=== PATIENT | male | born 1945 | race African-American/Black ===

== ENCOUNTER 2020-08-26 09:26 | Outpatient (REF) | payer MEDICARE, MEDICAID, SELFPAY ==
[2020-08-26 10:05] LABS: MANUAL DIFF FLAG NO
[2020-08-26 10:15] LABS: Basophils Absolute Auto 0.1 X10*3/uL (0.0-0.2); Eosinophils Absolute Auto 0.4 X10*3/uL (0.0-0.4); Eosinophils Percent Auto 6.1 % (0-4); Hematocrit 40.6 % (42-52); Hemoglobin 12.8 g/dl (14.0-18.0); Imm Gran Abs Auto 0.02 X10*3/uL (0.00-0.03); Imm Gran Pct Auto 0.3 % (0.0-0.4); Lymphocytes Absolute Auto 1.2 X10*3/uL (1.2-4.9); Lymphocytes Percent Auto 19.1 % (20-40); Mean Corpuscular HGB Conc 31.5 g/dl (31.0-36.0); Mean Corpuscular Hemoglobin 26.6 pg (27.0-33.0); Mean Corpuscular Volume 84.4 fL (80-98); Mean Platelet Volume 10.8 fL (9.4-12.4); Monocytes Absolute Auto 0.5 X10*3/uL (0.1-1.2); Monocytes Percent Auto 8.3 % (2-11); Neutrophils Absolute Auto 4.1 X10*3/uL (2.0-8.3); Neutrophils Percent Auto 65.2 % (45-73); Platelet Count 183 X10*3/uL (160-400); Red Blood Count 4.81 X10*6/uL (4.60-5.80); Red Cell Distribution Width 13.5 % (11.0-16.0); White Blood Count 6.3 X10*3/uL (4.8-10.8)
[2020-08-26 10:54] LABS: Alanine Aminotransferase 19 U/L (0-40); Albumin Level 4.5 g/dL (3.5-5.0); Alkaline Phosphatase 75 U/L (39-117); Anion Gap 10 (12-20); Aspartate Amino Transferase 19 U/L (5-37); Bilirubin Total 0.9 mg/dL (0.0-1.0); Carbon Dioxide 29 mmol/L (22-29); Chloride 109 mmol/L (96-108); Estimated Glomerular Filt Rate 44; Glucose Fasting 87 mg/dL (60-99); Potassium 4.3 mmol/L (3.3-5.1); Sodium 144 mmol/L (135-145); Total Protein 7.3 g/dL (6.5-8.0)
[2020-08-26 11:01] LABS: Blood Urea Nitrogen 24 mg/dL (9-16); Calcium 9.8 mg/dL (8.4-10.2); Prostate Specific Antigen Scr 1.37 ng/mL (<0.05-4.0)
== END 2020-08-26 09:27 | disposition home or self-care (01) ==
LOC: HO.10HDL 09:26
PROVIDERS: Visit Provider Internal Medicine
DX: I12.9 Hypertensive chronic kidney disease with stage 1 through stage 4 chronic kidney disease, or unspecified chronic kidney disease (principal); N18.9 Chronic kidney disease, unspecified; Z86.73 Personal history of transient ischemic attack (TIA), and cerebral infarction without residual deficits
CPT/HCPCS: 36415; 80053; 84153; 85025

== ENCOUNTER → 2020-12-24 14:36 | Outpatient (BNVA) | payer MEDICARE, MEDICAID, SELFPAY | PROVIDERS: PCP Internal Medicine; Visit Provider Urology | DX: R35.1 Nocturia (principal); N40.1 Benign prostatic hyperplasia with lower urinary tract symptoms; N13.8 Other obstructive and reflux uropathy; N52.9 Male erectile dysfunction, unspecified | CPT/HCPCS: 99202 ==

== ENCOUNTER → 2021-03-25 11:19 | Outpatient (BNVA) | payer MEDICARE, MEDICAID, SELFPAY | PROVIDERS: PCP Internal Medicine; Visit Provider Urology | DX: N40.1 Benign prostatic hyperplasia with lower urinary tract symptoms (principal); N13.8 Other obstructive and reflux uropathy; N52.9 Male erectile dysfunction, unspecified; R35.1 Nocturia | CPT/HCPCS: 51798; 99212 ==

== ENCOUNTER 2021-09-28 14:32 | Outpatient (REF) | payer MEDICARE, MEDICAID, SELFPAY ==
[2021-09-28 15:20] LABS: Influenza A PCR POSITIVE (Negative); Influenza B PCR NEGATIVE (Negative); Resp Syncy Virus RNA Qual PCR NEGATIVE (Negative); SARS COV2 PCR INHOUSE NEGATIVE (Negative)
== END 2021-09-28 14:33 | disposition home or self-care (01) ==
LOC: HO.LNP 14:32
PROVIDERS: Visit Provider Internal Medicine
DX: Z20.822 Contact with and (suspected) exposure to COVID-19 (principal); R05.9 Cough, unspecified
CPT/HCPCS: 0241U

== ENCOUNTER 2022-02-13 08:59 | Emergency (ER) | payer MEDICARE, MEDICAID, SELFPAY | END 2022-02-13 10:12 | disposition left against medical advice (07) | PROVIDERS: Emergency Provider Emergency Medicine; PCP Internal Medicine | DX: R60.0 Localized edema (principal) ==

== ENCOUNTER 2022-02-17 12:12 | Outpatient (REF) | payer MEDICARE, MEDICAID, SELFPAY ==
[2022-02-17 14:11] LABS: Alanine Aminotransferase 20 U/L (0-40); Albumin Level 4.4 g/dL (3.5-5.0); Alkaline Phosphatase 67 U/L (39-117); Anion Gap 18 (12-20); Aspartate Amino Transferase 19 U/L (5-37); Bilirubin Total 0.6 mg/dL (0.0-1.0); Blood Urea Nitrogen 31 mg/dL (9-16); Calcium 9.8 mg/dL (8.4-10.2); Carbon Dioxide 21 mmol/L (22-29); Chloride 108 mmol/L (96-108); Estimated Glomerular Filt Rate 40; Glucose Fasting 78 mg/dL (60-99); Potassium 3.9 mmol/L (3.3-5.1); Sodium 143 mmol/L (135-145); Total Protein 7.4 g/dL (6.5-8.0); Uric Acid 9.4 mg/dL (3.4-7.0)
== END 2022-02-17 12:13 | disposition home or self-care (01) ==
LOC: HO.10HDL 12:12
PROVIDERS: Visit Provider Internal Medicine
DX: I10 Essential (primary) hypertension (principal); M10.9 Gout, unspecified; D64.9 Anemia, unspecified
CPT/HCPCS: 36415; 80053; 84550

== ENCOUNTER 2022-07-15 15:19 | Inpatient (IN) | payer OTHER, MEDICARE, MEDICAID, SELFPAY ==
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
--- NOTE | ~2022-07-15 | FL_ITS ---
EXAMINATION: XR FLUOROSCOPY WITH IMAGES CLINICAL INFORMATION: Fluoroscopy guidance in the OR, 4 surgical hardware placement. COMPARISON: Left wrist radiograph 07/15/2022 TECHNIQUE: Fluoroscopy is provided for the orthopedic surgeon. Accumulative dose 0.538 mGy. 2 images obtained. FINDINGS: A metallic sideplate with threaded screws secures the distal radius. Fracture components are in anatomic alignment. The previously noted fractures to the scaphoid and ulnar are observed and are also in anatomic alignment. FL/FL guidance in OR IMPRESSION: Fluoroscopy provided as described.
--- NOTE | ~2022-07-15 | CT_ITS ---
EXAMINATION: CT lower leg RT wo IV con CLINICAL INFORMATION: Reason for Exam Tibial plateau fracture, CT to determine COMPARISON: Right knee radiographs performed earlier the same date TECHNIQUE: Axial images were obtained through the right lower leg without the administration of intravenous contrast. Coronal and sagittal reconstructed images generated. Intravenous Contrast: None This CT examination was performed using dose optimization techniques as appropriate, variously including the following: *Automated exposure control *Adjustment of mA and/or kV according to patient size (this includes techniques or standardized protocols for targeted exams where dose is matched to indication/reason for exam; i.e. extremities or head) *Use of iterative reconstruction technique DLP: 363.97 mGy-cm mGy-cm FINDINGS: There is a comminuted fracture of the lateral tibial plateau. Relatively large lateral tibial plateau articular surface fragment measuring approximately 2 x 2.3 cm in area is impacted up to 4 mm, series 7 image 51. Nondisplaced fracture line extends through the lateral margin of the lateral tibial spine. No involvement of the medial tibial plateau. Vertical fracture extends through the proximal medial tibial metaphysis. No transverse subcondylar component. Distal femur, patella and fibular intact. The more distal tibia is intact. Large lipohemarthrosis at the knee. No popliteal cyst. No ankle joint effusion. Mild to moderate vascular calcifications. Extensor mechanism appears to be intact. CT/CT lower leg RT wo IV con IMPRESSION: 1. Comminuted intra-articular fracture of the lateral tibial plateau with approximately 4 mm of depression of a large lateral tibial plateau articular surface fragment. 2. Large lipohemarthrosis. 3. No additional fracture or dislocation.
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
[2022-07-15 15:28] VITALS: BP 178/96; PULSE 80; O2SAT 95
[2022-07-15 15:48] VITALS: BP 168/106; PULSE 72; RESP 18; TEMP 36.7; O2SAT 97; BMI 25.7
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
[2022-07-15] MEDS: Acetaminophen 325 MG TABLET 975 MG PO (18:06)
[2022-07-15] MEDS: Morphine Sulfate Immed Release 15 MG TABLET PO (22:43)
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
[2022-07-16] VITALS (12 sets, daily range): BP systolic 122–169; BP diastolic 77–105; PULSE 77–106; RESP 14–18; TEMP 36.4–37.1; O2SAT 9–99
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
[2022-07-16 00:32] LABS: MANUAL DIFF FLAG NO
[2022-07-16 00:33] LABS: Basophils Percent Auto 0.3 % (0-2); Eosinophils Absolute Auto 0.2 X10*3/uL (0.0-0.4); Eosinophils Percent Auto 1.4 % (0-4); Hematocrit 39.6 % (42.0-52.0); Hemoglobin 12.6 g/dl (14.0-18.0); Imm Gran Abs Auto 0.05 X10*3/uL (0.00-0.03); Imm Gran Pct Auto 0.4 % (0.0-0.4); Lymphocytes Absolute Auto 1.2 X10*3/uL (1.2-4.9); Lymphocytes Percent Auto 9.7 % (20-40); Mean Corpuscular HGB Conc 31.8 g/dl (31.0-36.0); Mean Corpuscular Hemoglobin 26.4 pg (27.0-33.0); Monocytes Absolute Auto 0.9 X10*3/uL (0.1-1.2); Monocytes Percent Auto 7.3 % (2-11); Neutrophils Absolute Auto 9.8 x10*3/uL (2.0-8.3); Neutrophils Percent Auto 80.9 % (45-73); Platelet Count 168 X10*3/uL (160-400); Red Blood Count 4.77 X10*6/uL (4.60-5.80); Red Cell Distribution Width 13.7 % (11.0-16.0); White Blood Count 12.1 X10*3/uL (4.8-10.8)
[2022-07-16 00:39] LABS: Prothrombin Time 11.9 SEC (10.0-13.1)
[2022-07-16 00:42] LABS: Partial Thromboplastin Time 30.2 SEC (26.0-36.4)
[2022-07-16 00:49] LABS: COVID-19 Test Negative (Negative); IDNOW Serial# 16C4AD1C; IDNOW Serial# BCCEAD1C; Influenza A Negative (Negative); Influenza B2 Negative (Negative)
[2022-07-16 00:56] LABS: Alanine Aminotransferase 25 U/L (0-40); Alkaline Phosphatase 68 U/L (39-117); Anion Gap 12 (12-20); Aspartate Amino Transferase 23 U/L (5-37); Bilirubin Total 0.7 mg/dL (0.0-1.0); Blood Urea Nitrogen 21 mg/dL (9-16); Calcium 9.3 mg/dL (8.4-10.2); Carbon Dioxide 23 mmol/L (22-29); Chloride 113 mmol/L (96-108); Creatinine Clr Calc Pharmacy 52.4; Estimated Glomerular Filt Rate 46; Glucose Random 110 mg/dL (60-115); Sodium 144 mmol/L (135-145); Total Protein 6.6 g/dL (6.5-8.0)
[2022-07-16] MEDS: oxyCODONE HCl Immed Release 5 MG TABLET PO (03:08)
--- NOTE | 2022-07-16 07:17 | PC.NURSE ---
Addendum entered by Filipe Donovan RN 07/16/22 07:17: addendum: awaiting PT/CM not inpt bed Original Note: assumed care of patient, pt aox3, calm and cooperative, VSS, awaiting inpatient bed
--- NOTE | 2022-07-16 07:39 | PC.NURSE ---
pt cleaned, repositioned, set up with breakfast tray
[2022-07-16 08:30] LABS: Appearance Urine Clear; Color Urine Yellow; Glucose Urine UA Negative (Negative); Leukocyte Esterase Urine Negative (Negative); Nitrite Urine Negative (Negative); Specific Gravity - Urine 1.015 (1.005-1.025); UMIC TRIGGER UACC YES; Urine Blood Small (1+) (Negative); Urine Ketones Negative (Negative); Urine Protein 100 (2+) mg/dL (Neg-Trace)
[2022-07-16 08:37] LABS: Bacteria Urine None Seen (None Seen); Hyaline Casts Urine 0-2 /LPF (0-2); RBC Urine 0-2 /HPF (0-2); Squamous Epithelial Cell Urine 0-2 /HPF (0-2); WBC Urine 0-5 /HPF (0-5)
--- NOTE | 2022-07-16 09:08 | PC.NURSE ---
physical therapy at bedside
--- NOTE | 2022-07-16 09:35 | PHA.MEDREC ---
Pharmacy Consult ? Medication Reconciliation Pharmacy has completed the medication reconciliation. Patient did not know their medications. Encouraged this tax intern to call pharmacy to confirm meds. Called pharmacy and confirmed meds based off fill history/claim history.
[2022-07-16] MEDS: Acetaminophen 325 MG TABLET 975 MG PO (10:31)
[2022-07-16] MEDS: Metoprolol Succinate ER 100 MG TAB.ER.24H 200 MG PO (10:32)
[2022-07-16] MEDS: Atorvastatin Calcium 10 MG TABLET PO (10:32)
[2022-07-16] MEDS: lisinopriL 20 MG TABLET PO (10:32)
[2022-07-16] MEDS: Cholecalciferol (Vitamin D3) 25 MCG TABLET PO (10:32)
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
[2022-07-16 13:22] LABS: Glucose, Whole Blood 126 mg/dL (60-115)
--- NOTE | 2022-07-16 16:00 | MHC.EDTECH ---
this pct assumed care of patient at 1500 ,rounding done ,pt refused vitals sign ,rn elaxis aware .
--- NOTE | 2022-07-16 18:13 | MHC.EDTECH ---
pt refused dinner ,rn aware .
[2022-07-16] MEDS: OLANZapine 10 MG VIAL IM (18:53)
[2022-07-16] MEDS: HaloperidoL 5 MG TABLET PO (18:53)
[2022-07-16] MEDS: LORazepam 1 MG TABLET 2 MG PO (18:53)
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
--- NOTE | 2022-07-17 00:23 | PC.NURSE ---
pt sleeping, respirations even and unlabored, no apparent distress at this time
--- NOTE | 2022-07-17 01:06 | PC.NURSE ---
pt incontinent of urine, this RN and SUSHMA Angeles cleaned pt, changed gown and placed [place] condom cath on pt. Pt verbalizes no pain at this time and fell back asleep. Camera sitter in place at this time
--- NOTE | 2022-07-17 02:58 | PC.NURSE ---
Pt awoke for a few minutes asking for breakfast. pt was informed by this RN that it is too early for breakfast but he will be woken up when it is time for breakfast. Pt fell back asleep right after
[2022-07-17] MEDS: oxyCODONE HCl Immed Release 5 MG TABLET PO ×2 (07:32→21:48)
[2022-07-17] MEDS: OLANZapine ODT 10 MG TAB.RAPDIS TRANSLINGU (07:33)
[2022-07-17] MEDS: Acetaminophen 325 MG TABLET 975 MG PO (07:33)
[2022-07-17] MEDS: Metoprolol Succinate ER 100 MG TAB.ER.24H 200 MG PO (07:36)
[2022-07-17] MEDS: Atorvastatin Calcium 10 MG TABLET PO (07:37)
[2022-07-17] MEDS: lisinopriL 20 MG TABLET PO (07:37)
[2022-07-17] MEDS: Cholecalciferol (Vitamin D3) 25 MCG TABLET PO (07:38)
--- NOTE | 2022-07-17 08:18 | MHC.CM.ED ---
Received message from [facility]: [facility] will only accept if it is 100% certain that pt does NOT need surgery OR that surgery can be arranged for day 14 following acute rehab stay. Pt is to have an ortho consult this week (no appt as of this note) for determination on surgical needs per sander Celestin. Pt remains boarding in ED as PT consult determined STR/acute placement. Will continue to refer to SNF level facilities. Pt and ICU care team updated on above.
--- NOTE | 2022-07-17 12:00 | PC.NURSE ---
ASSUMED CARE OF THIS PT AT 0700. PT SLEEPING. MORNING MEDS GIVEN BY PREVIOUS RN. DONEPEZIL NOT AVAILABLE IN ED [facility]. PHARMACY WAS NOTIFIED AND WILL BRING TO THE UNIT.
--- NOTE | 2022-07-17 14:00 | PC.NURSE ---
PT BOOSTED UP IN BED AND GIVEN LUNCH. HE REFUSED VS TO BE DONE BY TECH. PLEASANTLY CONFUSED. NO AGGRESSIVE BEHAVIOR NOTED/REPORTED.
[2022-07-17] MEDS: minoxidiL 2.5 MG TABLET 5 MG PO ×2 (14:25→14:26)
[2022-07-17 14:38] VITALS: RESP 16
--- NOTE | 2022-07-17 14:38 | MHC.EDTECH ---
pt refused vitals at this time. RN aware
--- NOTE | 2022-07-17 15:59 | PC.NURSE ---
PT ASSISTED TO COMMODE, SMALL BM. INCONTINENT CARE AND BED CHANGE DONE. PT RESTING QUIETLY IN BED.
[2022-07-17 21:24] VITALS: BP 144/82; PULSE 99; RESP 16; O2SAT 95
[2022-07-17] MEDS: Melatonin 3 MG TABLET 6 MG PO (21:49)
--- NOTE | 2022-07-17 21:50 | PC.NURSE ---
This nurse resume care at 19:00: Pt reports pain, and unable to sleep. This nurse medicated pt following MAR. Pt has a pitch of water at bedside and a camera for safety concerns. Pt V/ S are stable, pt is a/o x4. will continue to monitor.
--- NOTE | 2022-07-18 05:35 | PC.NURSE ---
Pt's V/S are table, this nurse has given report to overflow nurse.
[2022-07-18 06:00] VITALS: BP 151/85; PULSE 79; RESP 20; TEMP 36.7; O2SAT 96
[2022-07-18] MEDS: Metoprolol Succinate ER 100 MG TAB.ER.24H 200 MG PO (08:29)
[2022-07-18] MEDS: Cholecalciferol (Vitamin D3) 25 MCG TABLET PO (08:29)
[2022-07-18] MEDS: Atorvastatin Calcium 10 MG TABLET PO (08:29)
[2022-07-18] MEDS: lisinopriL 20 MG TABLET PO (08:29)
--- NOTE | 2022-07-18 08:34 | PC.NURSE ---
Minoxidil requested from pharmacy. New socks and ice pack given to pt. Medicated to JUL.
--- NOTE | 2022-07-18 09:09 | MHC.CM.ED ---
Addendum entered by Helen Mcclelland 07/18/22 10:32: Received notification from Ammy OSBORNE that patient will be admitted. Original Note: Patient remains in ER overflow. Clinical updates sent to all facilties still following patient: [facility], [place], [facility], [facility], [facility], [facility], [facility] and [facility]. Continue to monitor for d/c needs.
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
--- NOTE | 2022-07-18 10:31 | PC.NURSE ---
Order for IV antibiotic with direction to be given in quoc-operative setting prior to surgery. Will hold at this time although order time states to give now.
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
[2022-07-18] MEDS: Lactated Ringers 1,000 ML 100 ML IVCONT (13:30)
[2022-07-18 13:42] VITALS: RESP 20
[2022-07-18] MEDS: HYDROmorphone HCl 0.5 MG/0.5 ML SYRINGE IVPUSH ×2 (13:42→20:48)
[2022-07-18 14:52] VITALS: BP 132/74; PULSE 97; RESP 17; TEMP 36.9; O2SAT 94
[2022-07-18 16:09] VITALS: BP 139/85; PULSE 92; RESP 18; TEMP 36.8; O2SAT 95
[2022-07-18 19:49] VITALS: BP 131/77; PULSE 88; RESP 18; TEMP 37.1; O2SAT 97
[2022-07-18 20:00] VITALS: RESP 20
[2022-07-18] MEDS: oxyCODONE HCl ER 10 MG TAB.ER.12H PO (20:48)
[2022-07-18] MEDS: Docusate Sodium 100 MG CAPSULE PO (20:48)
[2022-07-18] MEDS: Celecoxib 200 MG CAPSULE PO (20:48)
[2022-07-19] MEDS: Lactated Ringers 1,000 ML 100 ML IVCONT ×3 (00:31→23:03)
[2022-07-19 04:00] VITALS: BP 156/66; PULSE 89; RESP 18; TEMP 36.1; O2SAT 96
[2022-07-19 06:21] LABS: MANUAL DIFF FLAG NO
[2022-07-19 06:26] LABS: Basophils Percent Auto 0.4 % (0-2); Eosinophils Absolute Auto 0.4 X10*3/uL (0.0-0.4); Eosinophils Percent Auto 4.4 % (0-4); Hematocrit 31.4 % (42.0-52.0); Hemoglobin 9.9 g/dl (14.0-18.0); Imm Gran Abs Auto 0.03 X10*3/uL (0.00-0.03); Imm Gran Pct Auto 0.4 % (0.0-0.4); Lymphocytes Percent Auto 12.2 % (20-40); Mean Corpuscular HGB Conc 31.5 g/dl (31.0-36.0); Mean Corpuscular Hemoglobin 26.1 pg (27.0-33.0); Mean Corpuscular Volume 82.8 fL (80.0-98.0); Mean Platelet Volume 9.8 fL (9.4-12.4); Monocytes Absolute Auto 0.7 X10*3/uL (0.1-1.2); Neutrophils Absolute Auto 5.9 x10*3/uL (2.0-8.3); Neutrophils Percent Auto 73.6 % (45-73); Platelet Count 124 X10*3/uL (160-400); Red Blood Count 3.79 X10*6/uL (4.60-5.80); Red Cell Distribution Width 13.5 % (11.0-16.0)
[2022-07-19 06:42] LABS: Anion Gap 14 (12-20); Blood Urea Nitrogen 25 mg/dL (9-16); Calcium 8.8 mg/dL (8.4-10.2); Carbon Dioxide 22 mmol/L (22-29); Chloride 108 mmol/L (96-108); Creatinine Clr Calc Pharmacy 64.8; Estimated Glomerular Filt Rate 59; Glucose Fasting 97 mg/dL (60-99); Sodium 140 mmol/L (135-145)
[2022-07-19 07:53] VITALS: BP 148/98; PULSE 84; RESP 18; TEMP 36.3; O2SAT 97
[2022-07-19] MEDS: Cholecalciferol (Vitamin D3) 25 MCG TABLET PO (08:13)
[2022-07-19] MEDS: Docusate Sodium 100 MG CAPSULE PO ×2 (08:13→21:34)
[2022-07-19] MEDS: Metoprolol Succinate ER 100 MG TAB.ER.24H 200 MG PO (08:13)
[2022-07-19] MEDS: oxyCODONE HCl ER 10 MG TAB.ER.12H PO ×2 (08:13→21:34)
[2022-07-19] MEDS: Celecoxib 200 MG CAPSULE PO ×2 (08:13→21:34)
[2022-07-19] MEDS: Atorvastatin Calcium 10 MG TABLET PO (08:14)
[2022-07-19] MEDS: lisinopriL 20 MG TABLET PO (08:14)
[2022-07-19] MEDS: minoxidiL 2.5 MG TABLET 5 MG PO (08:14)
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
[2022-07-19] MEDS: oxyCODONE HCl Immed Release 5 MG TABLET PO (12:46)
[2022-07-19] MEDS: Acetaminophen 325 MG TABLET 975 MG PO ×2 (12:46→21:38)
[2022-07-19 15:37] VITALS: BP 128/81; PULSE 91; RESP 18; TEMP 36.2; O2SAT 94
[2022-07-19 19:35] VITALS: BP 143/96; PULSE 86; RESP 18; TEMP 36.2; O2SAT 97
[2022-07-20] VITALS (20 sets, daily range): BP systolic 138–230; BP diastolic 23–148; PULSE 69–100; RESP 8–20; TEMP 36.2–37.3; O2SAT 91–97
--- NOTE | 2022-07-20 03:36 | PC.NURSE ---
pt removed soft cast from L wrist and refusing to put it back on, stating that he doesn't need it.
[2022-07-20 06:23] LABS: MANUAL DIFF FLAG NO
[2022-07-20 06:30] LABS: Basophils Percent Auto 0.4 % (0-2); Eosinophils Absolute Auto 0.5 X10*3/uL (0.0-0.4); Hematocrit 34.1 % (42.0-52.0); Hemoglobin 11.1 g/dl (14.0-18.0); Imm Gran Abs Auto 0.03 X10*3/uL (0.00-0.03); Imm Gran Pct Auto 0.4 % (0.0-0.4); Lymphocytes Absolute Auto 1.1 X10*3/uL (1.2-4.9); Lymphocytes Percent Auto 14.9 % (20-40); Mean Corpuscular HGB Conc 32.6 g/dl (31.0-36.0); Mean Corpuscular Hemoglobin 26.6 pg (27.0-33.0); Mean Corpuscular Volume 81.6 fL (80.0-98.0); Mean Platelet Volume 10.3 fL (9.4-12.4); Monocytes Absolute Auto 0.7 X10*3/uL (0.1-1.2); Monocytes Percent Auto 8.9 % (2-11); Neutrophils Absolute Auto 5.2 x10*3/uL (2.0-8.3); Neutrophils Percent Auto 69.4 % (45-73); Platelet Count 159 X10*3/uL (160-400); Red Blood Count 4.18 X10*6/uL (4.60-5.80); Red Cell Distribution Width 13.2 % (11.0-16.0); White Blood Count 7.5 X10*3/uL (4.8-10.8)
[2022-07-20 06:58] LABS: Anion Gap 13 (12-20); Blood Urea Nitrogen 28 mg/dL (9-16); Calcium 9.1 mg/dL (8.4-10.2); Carbon Dioxide 25 mmol/L (22-29); Chloride 108 mmol/L (96-108); Creatinine Clr Calc Pharmacy 56.5; Estimated Glomerular Filt Rate 50; Glucose Fasting 90 mg/dL (60-99); Sodium 142 mmol/L (135-145)
[2022-07-20] MEDS: Metoprolol Succinate ER 100 MG TAB.ER.24H 200 MG PO (07:55)
[2022-07-20] MEDS: lisinopriL 20 MG TABLET PO (07:55)
[2022-07-20] MEDS: oxyCODONE HCl ER 10 MG TAB.ER.12H PO ×2 (07:56→19:27)
[2022-07-20] MEDS: Celecoxib 200 MG CAPSULE PO ×2 (07:56→19:27)
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
--- NOTE | 2022-07-20 09:38 | PC.NURSE ---
Patient arrived to preop with brace on right leg, no brace present on left arm. Dr. Cardenas at bedside. Permission from Dr. Cardenas to remove leg brace to clip and shave. Leg brace removed, tolerated well.
[2022-07-20] MEDS: Lactated Ringers 1,000 ML 80 ML IVCONT (10:13)
--- NOTE | 2022-07-20 10:15 | PC.NURSE ---
Dr. Dobbs made aware of patients recent BUN and Creat. New order to open Lactated Ringers wide and bolus 200ml of liter. Okay to proceed with surgery.
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
--- NOTE | 2022-07-20 10:40 | PC.NURSE ---
Notified by Michelle Wallace that Stat Type and Screen can be obtained in PACU after surgery. Yadira DINKEY MECHANIC notified.
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
--- NOTE | 2022-07-20 13:32 | W.PM.OPN ---
Operative Note Operative Note Date of Service: 07/20/22 Narrative: Date of Service: 07/20/22 Pre-op diagnosis: left distal radius fracture RIght tibial plateau fracture Post-op diagnosis: same Procedure: ORIF right tibial plateau ORIF left distal radius Implants: [place] lateral tibial plateau locking plate with 5ml Hydroset Harish 10 holwe distal locking plate Surgeon: Liborio Cardenas MD Anesthesia: GETA, regional and local Was an Mass Communications Professor used for this Procedure?: Yes Mass Communications Professor: Michelle Wallace Estimated blood loss (mL): 50 Tourniquet time (min): 60 IV fluids (mL): 1,100 Pathology: none sent Condition: stable Disposition: PACU Procedure in detail: Patient was brought to the operating room and placed supine on the radiolucent table. The limb was prepped and draped in standard sterile fashion and a time out was called to identify proper site, proper procedure and IV antibiotics per weight were administered. I began by making a lateral incision from proximal to the lateral joint line down across Gerdy's tubercle extending anteriorly. The IT band was incised in line with the incision and the anterior portion reflected off Gerdy's. The capsule was incised along with the coronal ligaments perpedicular to the incision between the lateral meniscus and the tibial plateau. The meniscus was tagged and the joint was irrigated. There was a split depression of the lateral plateau. I extended my anterior tibial fasciotomy distal and reflected the Tib ant off the tibia. A small cortical window was made at the metadyaphyseal junction anterolaterally and a tamp was inserted and the lateral plateau was elevated. I used biplanar flouro and direct visualization to confirm articular reduction. Once satisfied I injected 5 ml of Hydroset into the defect via the cortical window. Once the Hydroset was dry I placed a small lateral tibial plateau plate. Biplanar Flouro was used to confirm placement and standard AO technique was used to place 4 proximal locking and 2 distal non locking screws. I was satisfied with the stability and additional screws were not necessary. The position of the plate and the fracture reduction were confirmed with biplanar fluoroscopy. Once satisfied with this I removed all non essential instrumentation and irrigated copiously. I repaired the lateral meniscus and capsule and closed the IT band with running Quill and closed the subQ with absorbable sutures and skin janine. THe lower leg fascia was not repaired. The tourniquet was let down and there was no brisk bleeding. Patient was then placed in sterile dressing and extubated. He was brought to the recovery room in stable condition. There were no known complications. I then turned my attention to the contralateral distal radius. The limb was prepped and draped in standard fashion and a time-out was called to identify proper site procedure proper surgeon. IV antibiotics per weight were administered. I began by exsanguinating the limb and insufflating the tourniquet to 250 mm Hg. I then made a standard incision over the FCR. FCR sheath was incised and the FCR was retracted ulnar. A marivel incision was made in the FPL sheath and this was opened up proximally and distally. The FPL was swept aside revealing the pronator quadratus which was periosteally elevated off the distal radius revealing a distal radius fracture. I used a [place] and right your to remove necrotic debris and reduced the fracture. Using biplanar fluoroscopy I was satisfied with the reduction . A 0.54 K-wire was placed through the radial styloid into the radial shaft to provisionally maintain the reduction. A Harish distal radius plate was selected and placed on the distal radius. Fluoroscopic images were taken to confirm appropriate alignment on the AP and lateral projection. Once I was satisfied with this the radial styloid screw and the distal row were placed using standard AO technique. I then filled the proximal row with locking screws again confirming fracture reduction and hardware position using biplanar fluoroscopy. Once this was done I placed 2 proximal nonlocking screws through the cortical shaft reducing the plate to the bone and reapproximating the anatomic tilt of the distal radius on the lateral projection. Again once I was satisfied with the position of the plate and the fracture alignment all instrumentation was removed. The DRUJ was assessed and found to be stable and a layered closure was performed with absorbable sub-Q suture, a running prolene and skin glue. Sterile dressings were applied. Patient was placed into a well-padded thumb spica splint. Patient was extubated brought to recovery room in stable condition there were no known complications.
[2022-07-20] MEDS: fentaNYL citrate/PF 100 MCG/2 ML VIAL 25 MCG IVPUSH (13:45)
[2022-07-20] MEDS: Labetalol HCL 100 MG/20 ML VIAL IVPUSH ×2 (13:55→15:40)
[2022-07-20] MEDS: hydrALAZINE HCl 20 MG/ML VIAL 10 MG IVPUSH (14:08)
[2022-07-20] MEDS: hydrALAZINE HCl 20 MG/ML VIAL 5 MG IVPUSH (14:30)
[2022-07-20] MEDS: 0.9 % Sodium Chloride Flush 3 ML SYRINGE IVFLUSH ×3 (16:40→19:30)
[2022-07-20] MEDS: ceFAZolin Sodium/Dextrose,Iso 2 GM/50 ML PIGGYBACK IV (16:40)
[2022-07-20] MEDS: Enoxaparin Sodium 40 MG/0.4 ML SYRINGE SUBCUT (16:41)
[2022-07-20] MEDS: Docusate Sodium 100 MG CAPSULE PO (19:27)
[2022-07-20] MEDS: oxyCODONE HCl Immed Release 5 MG TABLET PO (23:09)
[2022-07-20] MEDS: Melatonin 3 MG TABLET 6 MG PO (23:51)
[2022-07-21] VITALS (8 sets, daily range): BP systolic 131–180; BP diastolic 60–96; PULSE 80–108; RESP 18; TEMP 36.3–36.9; O2SAT 93–97
[2022-07-21] MEDS: HYDROmorphone HCl 0.5 MG/0.5 ML SYRINGE IVPUSH ×3 (00:18→17:53)
[2022-07-21 06:00] LABS: MANUAL DIFF FLAG NO
[2022-07-21 06:14] LABS: Basophils Percent Auto 0.2 % (0-2); Eosinophils Absolute Auto 0.1 X10*3/uL (0.0-0.4); Eosinophils Percent Auto 0.9 % (0-4); Hematocrit 34.3 % (42.0-52.0); Hemoglobin 11.1 g/dl (14.0-18.0); Imm Gran Abs Auto 0.03 X10*3/uL (0.00-0.03); Imm Gran Pct Auto 0.3 % (0.0-0.4); Lymphocytes Absolute Auto 0.9 X10*3/uL (1.2-4.9); Lymphocytes Percent Auto 7.7 % (20-40); Mean Corpuscular HGB Conc 32.4 g/dl (31.0-36.0); Mean Corpuscular Hemoglobin 26.5 pg (27.0-33.0); Mean Corpuscular Volume 81.9 fL (80.0-98.0); Mean Platelet Volume 10.3 fL (9.4-12.4); Monocytes Absolute Auto 1.1 X10*3/uL (0.1-1.2); Monocytes Percent Auto 9.8 % (2-11); Neutrophils Absolute Auto 8.9 x10*3/uL (2.0-8.3); Neutrophils Percent Auto 81.1 % (45-73); Platelet Count 185 X10*3/uL (160-400); Red Blood Count 4.19 X10*6/uL (4.60-5.80); Red Cell Distribution Width 13.4 % (11.0-16.0)
[2022-07-21 06:39] LABS: Blood Urea Nitrogen 26 mg/dL (9-16); Calcium 9.2 mg/dL (8.4-10.2); Creatinine Clr Calc Pharmacy 53.1; Estimated Glomerular Filt Rate 47; Glucose Fasting 103 mg/dL (60-99)
[2022-07-21 06:50] LABS: Anion Gap 16 (12-20); Carbon Dioxide 23 mmol/L (22-29); Chloride 107 mmol/L (96-108); Potassium 4.9 mmol/L (3.3-5.1); Sodium 141 mmol/L (135-145)
[2022-07-21] MEDS: Enoxaparin Sodium 40 MG/0.4 ML SYRINGE SUBCUT (08:20)
[2022-07-21] MEDS: oxyCODONE HCl ER 10 MG TAB.ER.12H PO ×2 (08:21→20:23)
[2022-07-21] MEDS: minoxidiL 2.5 MG TABLET 5 MG PO (08:21)
[2022-07-21] MEDS: Metoprolol Succinate ER 100 MG TAB.ER.24H 200 MG PO (08:21)
[2022-07-21] MEDS: Celecoxib 200 MG CAPSULE PO ×2 (08:21→20:23)
[2022-07-21] MEDS: Docusate Sodium 100 MG CAPSULE PO ×2 (08:22→20:23)
[2022-07-21] MEDS: lisinopriL 20 MG TABLET PO (08:22)
[2022-07-21] MEDS: Cholecalciferol (Vitamin D3) 25 MCG TABLET PO (08:22)
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
[2022-07-21] MEDS: 0.9 % Sodium Chloride Flush 3 ML SYRINGE IVFLUSH ×4 (11:54→16:59)
[2022-07-21] MEDS: Atorvastatin Calcium 10 MG TABLET PO (11:54)
--- NOTE | 2022-07-21 13:55 | HO.POSTANES ---
Post Anesthesia Evaluation Post Anesthesia Evaluation Vital Signs: Vital Signs Temp Pulse Resp BP Pulse Ox O2 Del Method 07/21/22 11:53 97.7 F 98 18 131/80 93 Room Air 07/21/22 11:56 93 Room Air 07/21/22 08:00 98.4 F 80 18 180/60 H 97 Room Air 07/21/22 03:45 97.8 F 82 18 157/92 H 95 Room Air Anesthesia: Nerve Block and General Mental Status: Awake Pain Control: Satisfactory Nausea/Vomiting: None Hydration: Adequate Anesthesia-Related Issues: No Anes. Related Issues
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
[2022-07-21] MEDS: oxyCODONE HCl Immed Release 5 MG TABLET PO (20:22)
[2022-07-21] MEDS: Acetaminophen 325 MG TABLET 650 MG PO (20:23)
[2022-07-21] MEDS: Melatonin 3 MG TABLET 6 MG PO (20:24)
[2022-07-22] VITALS (7 sets, daily range): BP systolic 110–162; BP diastolic 63–93; PULSE 84–100; RESP 15–18; TEMP 36.6–36.8; O2SAT 94–97
[2022-07-22] MEDS: 0.9 % Sodium Chloride Flush 3 ML SYRINGE IVFLUSH ×4 (00:11→06:37)
[2022-07-22] MEDS: oxyCODONE HCl Immed Release 5 MG TABLET PO ×3 (03:13→06:36)
[2022-07-22 06:30] LABS: MANUAL DIFF FLAG NO
[2022-07-22] MEDS: Enoxaparin Sodium 40 MG/0.4 ML SYRINGE SUBCUT (06:33)
[2022-07-22] MEDS: Acetaminophen 325 MG TABLET 650 MG PO (06:34)
[2022-07-22] MEDS: Metoprolol Succinate ER 100 MG TAB.ER.24H 200 MG PO (06:34)
[2022-07-22] MEDS: Celecoxib 200 MG CAPSULE PO (06:35)
[2022-07-22] MEDS: oxyCODONE HCl ER 10 MG TAB.ER.12H PO (06:35)
[2022-07-22 06:36] LABS: Basophils Percent Auto 0.3 % (0-2); Eosinophils Absolute Auto 0.2 X10*3/uL (0.0-0.4); Eosinophils Percent Auto 1.3 % (0-4); Hematocrit 33.1 % (42.0-52.0); Hemoglobin 10.8 g/dl (14.0-18.0); Imm Gran Abs Auto 0.05 X10*3/uL (0.00-0.03); Imm Gran Pct Auto 0.4 % (0.0-0.4); Mean Corpuscular HGB Conc 32.6 g/dl (31.0-36.0); Mean Corpuscular Hemoglobin 26.2 pg (27.0-33.0); Mean Corpuscular Volume 80.1 fL (80.0-98.0); Mean Platelet Volume 10.2 fL (9.4-12.4); Monocytes Absolute Auto 1.2 X10*3/uL (0.1-1.2); Monocytes Percent Auto 10.5 % (2-11); Neutrophils Absolute Auto 9.4 x10*3/uL (2.0-8.3); Neutrophils Percent Auto 79.5 % (45-73); Platelet Count 201 X10*3/uL (160-400); Red Blood Count 4.13 X10*6/uL (4.60-5.80); Red Cell Distribution Width 13.4 % (11.0-16.0); White Blood Count 11.9 X10*3/uL (4.8-10.8)
[2022-07-22] MEDS: minoxidiL 2.5 MG TABLET 5 MG PO (06:36)
[2022-07-22] MEDS: lisinopriL 20 MG TABLET PO (06:36)
[2022-07-22] MEDS: Docusate Sodium 100 MG CAPSULE PO (06:36)
[2022-07-22] MEDS: Atorvastatin Calcium 10 MG TABLET PO (06:37)
[2022-07-22] MEDS: Cholecalciferol (Vitamin D3) 25 MCG TABLET PO (06:37)
[2022-07-22 06:54] LABS: Anion Gap 16 (12-20); Blood Urea Nitrogen 26 mg/dL (9-16); Calcium 9.4 mg/dL (8.4-10.2); Carbon Dioxide 24 mmol/L (22-29); Chloride 106 mmol/L (96-108); Creatinine Clr Calc Pharmacy 57.3; Estimated Glomerular Filt Rate 51; Glucose Fasting 100 mg/dL (60-99); Potassium 4.7 mmol/L (3.3-5.1); Sodium 141 mmol/L (135-145)
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
--- NOTE | 2022-07-22 11:43 | PM.DS ---
DS: Providers Provider Date of Service: 07/22/22 Date of admission: 07/18/22 12:10 Primary care physician: Williams Morejon MD Consults: 07/18/22 13:38 Consult to Hospitalist Routine Consulting Provider: Hospitalist Reason For Exam: Routine medical management, HTN, HLD, hx CVA DS: Diagnosis Discharge Diagnosis (1) HLD (hyperlipidemia): Status: Acute (2) HTN (hypertension): Status: Acute (3) Closed fracture of right tibial plateau: Status: Acute DS: Summary Hospital Course Hospital Course: The patient underwent a successful left distal radius ORIF and right tibial plateau fracture, they were transferred to PACU and then to the floor to recover. During their stay, their vitals were stable, afebrile at 98.1. Labs were unremarkable, H/H 10.8/33.1. POD 1 they were started on Lovenox for DVT ppx, they also received Physical Therapy services twice a day. Prior to discharge, their dressing was changed, incision clean dry and intact, new Aquacel dressing applied and the plan was to be discharged to rehab. Time Spent with Patient Time attestation: Total time managing care of this patient today ____ minutes. Discharge coordination time: Less than 30 minutes Quality: Safe Use of Opioids Does Pt have an Active Cancer Diagnosis on the Problem List?: No Quality: Stroke Does the patient have a stroke diagnosis?: No Physical Exam Vital Signs: Vital Signs: Last Vital Signs Temp 98.1 F 07/22/22 11:00 Pulse 84 07/22/22 11:00 Resp 18 07/22/22 11:00 BP 110/64 07/22/22 11:00 Pulse Ox 94 07/22/22 11:00 O2 Del Method 07/22/22 11:00 O2 Flow Rate 2 07/20/22 14:35 BMI result Body Mass Index 25.7 Const: General: cooperative, healthy appearing and no acute distress Resp: Effort & Inspection: normal respiratory effort and able to speak in complete sentences Cardio: Rate: regular rate Peripheral pulses: Peripheral pulses 2+ throughout GI: Palpation (GI): Soft to palpation Skin: Lesions: no lesions Rashes: no rashes Extrem: Other: Right knee: Aquacel is c/d/i. Immobilizer in place. Sensation reportedly intact. Pedal pulse intact. Left wrist: Thumb spica splint is c/d/i. Sensation reportedly intact. Able to move all digits. DS: Data Data Completed and Pending Labs on day of discharge: Laboratory Results - last 24 hr 07/22/22 07/22/22 05:46 05:46 WBC 11.9 H RBC 4.13 L Hgb 10.8 L Hct 33.1 L MCV 80.1 MCH 26.2 L MCHC 32.6 RDW 13.4 Plt Count 201 MPV 10.2 Immature Gran % (Auto) 0.4 Neut % (Auto) 79.5 H Lymph % (Auto) 8.0 L [place] % (Auto) 10.5 Eos % (Auto) 1.3 Baso % (Auto) 0.3 Lymph # (Auto) 1.0 L [place] # (Auto) 1.2 Eos # (Auto) 0.2 Baso # (Auto) 0.0 Abs Immat Gran (auto) 0.05 H Absolute Neuts (auto) 9.4 H Absolute Nucleated RBC 0.000 Nucleated RBC % (auto) 0.0 Sodium 141 Potassium 4.7 Chloride 106 Carbon Dioxide 24 Anion Gap 16 BUN 26 H Creatinine 1.39 Estim Creat Clear Calc 57.3 Estimated GFR 51 Fasting Glucose 100 H Calcium 9.4 Discharge Plan Discharge Anticipated Discharge Date/Time: 07/22/22 12:30 Patient Disposition: [facility] Discharge Diagnosis: s/p left dirstal raidus ORIF and s/p Right tibial plateau ORIF Referrals: [facility] [Other] - 1 Week Michelle Wallace PA-C [Physician Ship Laborer] - 2 Weeks Williams Morejon MD [Primary Care Provider] - 1 Week Discharge Medications: New enoxaparin 40 mg/0.4 mL Syringe 40 mg subcut Q24H 42 Days Qty: 16.8 0RF celecoxib 200 mg Capsule 200 mg PO BID 30 Days Qty: 60 0RF acetaminophen 325 mg Tablet 650 mg PO Q6H PRN (Reason: Pain, Mild (Pain Scale 1-3)) 30 Days Qty: 240 0RF docusate sodium 100 mg Capsule 100 mg PO BID 30 Days Qty: 60 0RF oxycodone 5 mg Tablet 5 mg PO Q4H PRN (Reason: Pain, Moderate (Pain Scale 4-6) 7 Days Qty: 42 0RF Rx Instructions: Partial Fill upon patient request. Continued atorvastatin 10 mg tablet 1 tab PO DAILY metoprolol succinate 200 mg tablet extended release 24 hr 1 tab PO DAILY lisinopril 20 mg tablet 1 tab PO DAILY minoxidil 2.5 mg tablet 2 tab PO DAILY cholecalciferol (vitamin D3) 25 mcg (1,000 unit) tablet 1 tab PO DAILY Discontinued acetaminophen 500 mg Tablet 1,000 mg PO QID PRN (Reason: Fever Or Pain) Discharge Orders: Discharge Order (Routine); Ordered 07/22/22 Ordered By: Michelle Wallace Diet: Advance to usual diet Activity on Discharge: Use Splints or Immobilizers Stand Alone Forms: Patient Portal Discharge page Care Plan Goals: restore fxn left wrist and right knee Health Concerns: None Plan of Treatment: Left wrist: Keep splint clean, dry, and intact Elevate throughout the day No heavy lifting Perform fist/finger exercises throughout the day Do not bathe or shower--keep splint dry Call [facility] orthopedics with any questions or concerns. Follow up with orthopedics in 14 days post op Right knee : Knee immobilizer at all times Elevate throughout the day Keep drssing clean, dry, and intact Nonweightbearing Assessment: Stable for discharge to rehab
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
[2022-07-22 12:33] LABS: COVID-19 Test Negative (Negative); IDNOW Serial# 9DB6401D
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
== END 2022-07-22 17:06 | disposition skilled nursing facility (03) | DRG 493 ==
LOC: HO.ED 07-18 10:16 → HO.EDOVER 07-18 12:27 → HO.S3 07-18 13:57
PROVIDERS: Physician Assistant; Admitting Provider Orthopaedic Surgery; Emergency Provider Emergency Medicine Emergency Medical Services; PCP Internal Medicine; Visit Provider Orthopaedic Surgery
PROC: 0QSG04Z Reposition Right Tibia with Internal Fixation Device, Open Approach (ICD-10-PCS; principal; 2022-07-20 11:20)
PROC: 0QSG04Z Reposition Right Tibia with Internal Fixation Device, Open Approach (ICD-10-PCS; 2022-07-20 11:20)
DX: S82.141A Displaced bicondylar fracture of right tibia, initial encounter for closed fracture (principal); M25.062 Hemarthrosis, left knee; S52.612A Displaced fracture of left ulna styloid process, initial encounter for closed fracture; S52.572A Other intraarticular fracture of lower end of left radius, initial encounter for closed fracture; V49.49XA Driver injured in collision with other motor vehicles in traffic accident, initial encounter; Y92.410 Unspecified street and highway as the place of occurrence of the external cause; I10 Essential (primary) hypertension; E78.5 Hyperlipidemia, unspecified; Z20.822 Contact with and (suspected) exposure to COVID-19; Z86.73 Personal history of transient ischemic attack (TIA), and cerebral infarction without residual deficits; Z87.891 Personal history of nicotine dependence; Z79.899 Other long term (current) drug therapy
CPT/HCPCS: 36415; 70450; 72125; 73110; 73562; 73700; 80048; 80053; 81001; 82947; 85025; 85610; 85730; 86850; 86900; 86901; 87502; 87635; 93005; 97110; 97116; 97162; 97166; 97530; 99285; C1713; J0131; J0690; J1170; J1650; J1885; J2250; J2795; J3010

== ENCOUNTER 2022-08-05 09:50 | Outpatient (REF) | payer OTHER, SELFPAY | END 2022-08-05 09:51 | disposition home or self-care (01) | LOC: HO.HOSX 09:50 | PROVIDERS: Visit Provider Physician Assistant | DX: Z13.89 Encounter for screening for other disorder (principal) ==

== ENCOUNTER 2022-08-08 10:08 | Outpatient (REF) | payer OTHER, SELFPAY | END 2022-08-08 10:09 | disposition home or self-care (01) | LOC: HO.HOSX 10:08 | PROVIDERS: Visit Provider Physician Assistant | DX: Z13.89 Encounter for screening for other disorder (principal) ==

== ENCOUNTER 2022-08-11 11:40 | Outpatient (REF) | payer OTHER, MEDICARE, MEDICAID, SELFPAY ==
--- NOTE | ~2022-08-11 | XR_ITS ---
EXAMINATION: XR KNEE, RIGHT XR WRIST, LEFT CLINICAL INFORMATION: Pain. COMPARISON: CT and x-ray right knee. TECHNIQUE: 4 views of the right knee. 4 views left wrist. FINDINGS: RIGHT KNEE: There is a stabilized lateral tibial plateau fracture with lateral metallic plate and screws in satisfactory alignment. There are surgical janine fromimmediate postsurgical changes along the lateral knee. There is mild joint effusion with minimal soft tissue swelling. The distal femur and patella appear unremarkable. LEFT WRIST: There is a distal radial fracture stabilized with volar plate and screws. There is a nondisplaced ulnar styloid process fracture. There is mild wrist soft tissue swelling seen. XR/XR knee RT 2V IMPRESSION: 1. Stabilized lateral tibial plateau fracture with lateral metallic plate and screws in satisfactory alignment. There are surgical janine from immediate postsurgical changes along the lateral knee. 2. There is a nondisplaced ulnar styloid process fracture. There is mild wrist soft tissue swelling. 3. There is a distal radial fracture with volar plate and screws.
--- NOTE | ~2022-08-11 | XR_ITS ---
EXAMINATION: XR KNEE, RIGHT XR WRIST, LEFT CLINICAL INFORMATION: Pain. COMPARISON: CT and x-ray right knee. TECHNIQUE: 4 views of the right knee. 4 views left wrist. FINDINGS: RIGHT KNEE: There is a stabilized lateral tibial plateau fracture with lateral metallic plate and screws in satisfactory alignment. There are surgical janine fromimmediate postsurgical changes along the lateral knee. There is mild joint effusion with minimal soft tissue swelling. The distal femur and patella appear unremarkable. LEFT WRIST: There is a distal radial fracture stabilized with volar plate and screws. There is a nondisplaced ulnar styloid process fracture. There is mild wrist soft tissue swelling seen. XR/XR wrist LT w scaphoid IMPRESSION: 1. Stabilized lateral tibial plateau fracture with lateral metallic plate and screws in satisfactory alignment. There are surgical janine from immediate postsurgical changes along the lateral knee. 2. There is a nondisplaced ulnar styloid process fracture. There is mild wrist soft tissue swelling. 3. There is a distal radial fracture with volar plate and screws.
== END 2022-08-11 11:41 | disposition home or self-care (01) ==
LOC: HO.HOSX 11:40
PROVIDERS: Visit Provider Physician Assistant
DX: S52.502D Unspecified fracture of the lower end of left radius, subsequent encounter for closed fracture with routine healing (principal); S52.602D Unspecified fracture of lower end of left ulna, subsequent encounter for closed fracture with routine healing; S82.141D Displaced bicondylar fracture of right tibia, subsequent encounter for closed fracture with routine healing
CPT/HCPCS: 73110; 73560

== ENCOUNTER 2022-08-13 00:53 | Emergency (ER) | payer MEDICARE, MEDICAID, SELFPAY ==
--- NOTE | ~2022-08-13 | US_ITS ---
EXAMINATION: US VENOUS ULTRASOUND WITH DOPPLER LOWER EXTREMITY, RIGHT CLINICAL INFORMATION: Right lower extremity edema. Recent knee surgery. COMPARISON: None available. TECHNIQUE: Ultrasound of the deep veins is performed from the hip to the calf with compression sonography and color and pulse Doppler assessment. Spectral analysis with color-flow imaging is performed. FINDINGS: There is normal venous compression and respiratory variation and augmented flow. The visualized common femoral vein, superficial femoral vein, profunda femoral vein, popliteal vein, and the trifurcation region shows no evidence of deep venous thrombosis. There is no significant popliteal fossa cyst. If the patient's symptoms persist, followup ultrasound in 5 days 7 days might be of value to exclude proximal propagation from a non-visualized calf vein. US/US venous duplex LE RT IMPRESSION: No DVT demonstrated in the right lower extremity.
[2022-08-13 01:02] VITALS: BP 116/65; BP 124/93; PULSE 87; PULSE 91; RESP 20; TEMP 36.9; O2SAT 97; O2SAT 99; BMI 26.0
[2022-08-13 01:10] VITALS: PULSE 87; RESP 20; TEMP 36.9; O2SAT 97
[2022-08-13 03:14] VITALS: BP 117/64; PULSE 83; RESP 20; TEMP 36.8; O2SAT 97
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
[2022-08-13 06:43] VITALS: RESP 17
== END 2022-08-13 08:56 | disposition home or self-care (01) ==
PROVIDERS: Emergency Provider Emergency Medicine
DX: R60.0 Localized edema (principal); M79.661 Pain in right lower leg; G89.18 Other acute postprocedural pain
CPT/HCPCS: 93971; 99284

== ENCOUNTER 2022-09-08 07:35 | Outpatient (REF) | payer MEDICARE, MEDICAID, SELFPAY | END 2022-09-08 07:36 | disposition home or self-care (01) | LOC: HO.HOSX 07:35 | PROVIDERS: Visit Provider Physician Assistant | DX: Z13.89 Encounter for screening for other disorder (principal) ==

== ENCOUNTER → 2022-11-11 13:04 | Outpatient (BNVA) | payer MEDICARE, MEDICAID, SELFPAY | PROVIDERS: PCP Physician Assistant; Visit Provider Urology ==

== ENCOUNTER 2022-12-16 13:43 | Outpatient (AMB) | payer MEDICARE, MEDICAID, SELFPAY ==
[2022-12-16 13:47] VITALS: BP 150/100; PULSE 72; O2SAT 95; BMI 27.1
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
== END 2022-12-16 14:27 | disposition home or self-care (01) ==
PROVIDERS: PCP Physician Assistant; Visit Provider Nurse Practitioner Family
DX: I10 Essential (primary) hypertension (principal); E78.5 Hyperlipidemia, unspecified; N40.1 Benign prostatic hyperplasia with lower urinary tract symptoms; N13.8 Other obstructive and reflux uropathy
CPT/HCPCS: 99204

== ENCOUNTER 2023-03-16 09:25 | Outpatient (AMB) | payer MEDICARE, MEDICAID, SELFPAY ==
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
[2023-03-16 09:28] VITALS: BP 110/70; PULSE 78; O2SAT 98; BMI 28.4
== END 2023-03-16 10:01 | disposition home or self-care (01) ==
PROVIDERS: PCP Nurse Practitioner Family; Visit Provider Internal Medicine
DX: Z23 Encounter for immunization (principal)
CPT/HCPCS: 90471; 90686; 99213

== ENCOUNTER 2023-03-30 08:36 | Outpatient (AMB) | payer MEDICARE, MEDICAID, SELFPAY ==
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
[2023-03-30 08:46] VITALS: BP 160/100; PULSE 73; O2SAT 97; BMI 28.5
[2023-03-30 08:55] VITALS: BP 130/70
== END 2023-03-30 09:27 | disposition home or self-care (01) ==
PROVIDERS: PCP Nurse Practitioner Family; Visit Provider Internal Medicine
DX: Z00.00 Encounter for general adult medical examination without abnormal findings (principal)
CPT/HCPCS: 99397

== ENCOUNTER 2023-03-30 09:35 | Outpatient (REF) | payer MEDICARE, MEDICAID, SELFPAY ==
[2023-03-30 09:56] LABS: MANUAL DIFF FLAG NO
[2023-03-30 10:54] LABS: Basophils Percent Auto 0.5 % (0-2); Eosinophils Absolute Auto 0.5 X10*3/uL (0.0-0.4); Eosinophils Percent Auto 7.8 % (0-4); Hematocrit 40.6 % (42.0-52.0); Hemoglobin 12.9 g/dl (14.0-18.0); Imm Gran Abs Auto 0.02 X10*3/uL (0.00-0.03); Imm Gran Pct Auto 0.3 % (0.0-0.4); Lymphocytes Absolute Auto 1.5 X10*3/uL (1.2-4.9); Lymphocytes Percent Auto 24.5 % (20-40); Mean Corpuscular HGB Conc 31.8 g/dl (31.0-36.0); Mean Corpuscular Hemoglobin 26.4 pg (27.0-33.0); Mean Platelet Volume 10.5 fL (9.4-12.4); Monocytes Absolute Auto 0.4 X10*3/uL (0.1-1.2); Monocytes Percent Auto 6.7 % (2-11); Neutrophils Absolute Auto 3.8 x10*3/uL (2.0-8.3); Neutrophils Percent Auto 60.2 % (45-73); Platelet Count 197 X10*3/uL (160-400); Red Blood Count 4.89 X10*6/uL (4.60-5.80); Red Cell Distribution Width 13.7 % (11.0-16.0); White Blood Count 6.3 X10*3/uL (4.8-10.8)
[2023-03-30 10:57] LABS: Estimated Average Glucose 82 mg/dL; Hemoglobin A1c % 4.5 % (<6.0)
[2023-03-30 11:31] LABS: Alanine Aminotransferase 22 U/L (0-40); Albumin Level 4.6 g/dL (3.5-5.0); Alkaline Phosphatase 83 U/L (39-117); Anion Gap 12 (12-20); Aspartate Amino Transferase 20 U/L (5-37); Bilirubin Total 0.8 mg/dL (0.0-1.0); Blood Urea Nitrogen 24 mg/dL (9-16); Carbon Dioxide 25 mmol/L (22-29); Chloride 109 mmol/L (96-108); Cholesterol 169 mg/dL (<200); Estimated Glomerular Filt Rate 43; Glucose Fasting 88 mg/dL (60-99); HDL Cholesterol 44 mg/dL (>40); LDL Cholesterol Calculated 92 mg/dL (<100); Potassium 4.2 mmol/L (3.3-5.1); Sodium 142 mmol/L (135-145); Total Protein 7.8 g/dL (6.5-8.0); Triglycerides 169 mg/dL (<150)
[2023-03-30 11:51] LABS: Vitamin D 25-OH Total 39.7 ng/mL (>30)
== END 2023-03-30 09:36 | disposition home or self-care (01) ==
LOC: HO.LAB 09:35
PROVIDERS: PCP Internal Medicine; Visit Provider Nurse Practitioner Family
DX: I10 Essential (primary) hypertension (principal); E78.5 Hyperlipidemia, unspecified; Z13.220 Encounter for screening for lipoid disorders; Z13.0 Encounter for screening for diseases of the blood and blood-forming organs and certain disorders involving the immune mechanism; Z13.29 Encounter for screening for other suspected endocrine disorder; Z13.21 Encounter for screening for nutritional disorder
CPT/HCPCS: 36415; 80053; 80061; 82306; 83036; 84443; 85025

== ENCOUNTER 2023-05-04 10:57 | Outpatient (AMB) | payer MEDICARE, MEDICAID, SELFPAY ==
[2023-05-04 11:00] VITALS: BP 122/88; PULSE 81; O2SAT 98; BMI 28.7
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
== END 2023-05-04 11:26 | disposition home or self-care (01) ==
PROVIDERS: PCP Internal Medicine; Visit Provider Internal Medicine Hypertension Specialist
DX: I12.9 Hypertensive chronic kidney disease with stage 1 through stage 4 chronic kidney disease, or unspecified chronic kidney disease (principal); N18.9 Chronic kidney disease, unspecified
CPT/HCPCS: 99204

== ENCOUNTER → 2023-05-04 10:57 | Outpatient (BNVA) | payer MEDICARE, MEDICAID, SELFPAY | PROVIDERS: PCP Internal Medicine; Visit Provider Internal Medicine Hypertension Specialist | DX: I12.9 Hypertensive chronic kidney disease with stage 1 through stage 4 chronic kidney disease, or unspecified chronic kidney disease (principal); N18.9 Chronic kidney disease, unspecified | CPT/HCPCS: 99202 ==

== ENCOUNTER 2023-06-02 09:05 | Outpatient (AMB) | payer MEDICARE, MEDICAID, SELFPAY ==
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
== END 2023-06-02 10:08 | disposition home or self-care (01) ==
LOC: HO.HUSH 09:06
PROVIDERS: PCP Internal Medicine; Visit Provider Urology
DX: N40.1 Benign prostatic hyperplasia with lower urinary tract symptoms (principal); N13.8 Other obstructive and reflux uropathy; N52.9 Male erectile dysfunction, unspecified; R35.1 Nocturia
CPT/HCPCS: 99214

== ENCOUNTER → 2023-06-02 09:05 | Outpatient (BNVA) | payer MEDICARE, MEDICAID, SELFPAY | PROVIDERS: PCP Internal Medicine; Visit Provider Urology | DX: N40.1 Benign prostatic hyperplasia with lower urinary tract symptoms (principal); N13.8 Other obstructive and reflux uropathy; R35.1 Nocturia; N52.9 Male erectile dysfunction, unspecified; Z79.899 Other long term (current) drug therapy | CPT/HCPCS: 51798; 81003; 99212 ==

== ENCOUNTER 2023-06-19 10:55 | Outpatient (AMB) | payer MEDICARE, MEDICAID, SELFPAY ==
[2023-06-19 10:56] VITALS: BP 124/88; PULSE 80; O2SAT 96; BMI 28.8
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
== END 2023-06-19 11:15 | disposition home or self-care (01) ==
PROVIDERS: PCP Internal Medicine; Visit Provider Internal Medicine Hypertension Specialist
DX: I12.9 Hypertensive chronic kidney disease with stage 1 through stage 4 chronic kidney disease, or unspecified chronic kidney disease (principal); N18.9 Chronic kidney disease, unspecified
CPT/HCPCS: 99214

== ENCOUNTER 2023-06-19 10:55 | Outpatient (REF) | payer MEDICARE, MEDICAID, SELFPAY ==
[2023-06-19 12:26] LABS: Hematocrit 41.2 % (42.0-52.0); Hemoglobin 13.1 g/dl (14.0-18.0); Mean Corpuscular HGB Conc 31.8 g/dl (31.0-36.0); Mean Corpuscular Hemoglobin 26.5 pg (27.0-33.0); Mean Corpuscular Volume 83.4 fL (80.0-98.0); Mean Platelet Volume 10.6 fL (9.4-12.4); Platelet Count 196 X10*3/uL (160-400); Red Blood Count 4.94 X10*6/uL (4.60-5.80); Red Cell Distribution Width 13.9 % (11.0-16.0); White Blood Count 7.2 X10*3/uL (4.8-10.8)
[2023-06-19 12:51] LABS: Appearance Urine Clear; Color Urine Yellow; Glucose Urine UA Negative (Negative); Leukocyte Esterase Urine Negative (Negative); Nitrite Urine Negative (Negative); PH 5.5 (5.0-9.0); Specific Gravity - Urine 1.015 (1.005-1.025); UMIC TRIGGER UA YES; Urine Blood Trace (Negative); Urine Ketones Negative (Negative); Urine Protein 30 (1+) mg/dL (Neg-Trace)
[2023-06-19 12:52] LABS: Alanine Aminotransferase 23 U/L (0-40); Albumin Level 4.6 g/dL (3.5-5.0); Alkaline Phosphatase 84 U/L (39-117); Anion Gap 14 (12-20); Aspartate Amino Transferase 20 U/L (5-37); Bilirubin Total 0.9 mg/dL (0.0-1.0); Blood Urea Nitrogen 23 mg/dL (9-16); Carbon Dioxide 22 mmol/L (22-29); Chloride 111 mmol/L (96-108); Estimated Glomerular Filt Rate 43; Glucose Random 87 mg/dL (60-115); Potassium 4.2 mmol/L (3.3-5.1); Sodium 143 mmol/L (135-145); Total Protein 7.8 g/dL (6.5-8.0)
[2023-06-19 12:56] LABS: Bacteria Urine None Seen (None Seen); Hyaline Casts Urine 0-2 /LPF (0-2); RBC Urine 0-2 /HPF (0-2); Squamous Epithelial Cell Urine 0-2 /HPF (0-2); WBC Urine 0-5 /HPF (0-5)
[2023-06-19 13:03] LABS: Creatinine Urine 96.18 mg/dL; Total Protein Urine Random 44 mg/dL (<12)
[2023-06-19 13:06] LABS: Parathyroid Hormone Intact 156.4 pg/mL (8.7-77.1)
== END 2023-06-19 10:56 | disposition home or self-care (01) ==
LOC: HO.LAB 10:55
PROVIDERS: PCP Internal Medicine; Visit Provider Internal Medicine Hypertension Specialist
DX: I10 Essential (primary) hypertension (principal); N18.9 Chronic kidney disease, unspecified
CPT/HCPCS: 36415; 80053; 81001; 82570; 83970; 84156; 85027; 99212

== ENCOUNTER 2023-08-04 09:13 | Outpatient (REF) | payer MEDICARE, MEDICAID, SELFPAY ==
[2023-08-04 10:05] LABS: Hematocrit 38.3 % (42.0-52.0); Hemoglobin 12.2 g/dl (14.0-18.0); Mean Corpuscular HGB Conc 31.9 g/dl (31.0-36.0); Mean Corpuscular Hemoglobin 26.5 pg (27.0-33.0); Mean Corpuscular Volume 83.1 fL (80.0-98.0); Mean Platelet Volume 10.4 fL (9.4-12.4); Platelet Count 177 X10*3/uL (160-400); Red Blood Count 4.61 X10*6/uL (4.60-5.80); Red Cell Distribution Width 13.4 % (11.0-16.0); White Blood Count 5.7 X10*3/uL (4.8-10.8)
[2023-08-04 10:42] LABS: Anion Gap 11 (12-20); Blood Urea Nitrogen 23 mg/dL (9-16); Calcium 9.7 mg/dL (8.4-10.2); Carbon Dioxide 23 mmol/L (22-29); Chloride 111 mmol/L (96-108); Estimated Glomerular Filt Rate 48; Potassium 4.2 mmol/L (3.3-5.1); Sodium 141 mmol/L (135-145)
[2023-08-04 10:44] LABS: Parathyroid Hormone Intact 148.9 pg/mL (8.7-77.1)
[2023-08-04 10:50] LABS: Appearance Urine Clear; Color Urine Yellow; Glucose Urine UA Negative (Negative); Leukocyte Esterase Urine Negative (Negative); Nitrite Urine Negative (Negative); PH 5.5 (5.0-9.0); UMIC TRIGGER UA YES; Urine Blood Trace (Negative); Urine Ketones Negative (Negative); Urine Protein 30 (1+) mg/dL (Neg-Trace)
[2023-08-04 11:01] LABS: PSA,Total (Free>4and<10) 1.44 ng/mL (0.00-4.00)
[2023-08-04 11:29] LABS: Creatinine Urine 73.24 mg/dL; Total Protein Urine Random 30 mg/dL (<12)
[2023-08-04 13:57] LABS: Bacteria Urine None Seen (None Seen); Hyaline Casts Urine 0-2 /LPF (0-2); RBC Urine 0-2 /HPF (0-2); Squamous Epithelial Cell Urine 0-2 /HPF (0-2); WBC Urine 0-5 /HPF (0-5)
== END 2023-08-04 09:14 | disposition home or self-care (01) ==
LOC: HO.LAB 09:13
PROVIDERS: Absent Provider Internal Medicine Hypertension Specialist; PCP Internal Medicine; Visit Provider Urology
DX: I12.9 Hypertensive chronic kidney disease with stage 1 through stage 4 chronic kidney disease, or unspecified chronic kidney disease (principal); N18.9 Chronic kidney disease, unspecified; N40.1 Benign prostatic hyperplasia with lower urinary tract symptoms; N13.8 Other obstructive and reflux uropathy; Z12.5 Encounter for screening for malignant neoplasm of prostate
CPT/HCPCS: 36415; 80051; 81001; 82310; 82565; 82570; 83970; 84153; 84156; 84520; 85027

== ENCOUNTER 2023-08-10 09:20 | Outpatient (AMB) | payer MEDICARE, MEDICAID, SELFPAY ==
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
== END 2023-08-10 09:48 | disposition home or self-care (01) ==
PROVIDERS: PCP Internal Medicine; Visit Provider Urology
DX: N40.1 Benign prostatic hyperplasia with lower urinary tract symptoms (principal); N13.8 Other obstructive and reflux uropathy; N52.9 Male erectile dysfunction, unspecified
CPT/HCPCS: 99213

== ENCOUNTER → 2023-08-10 09:20 | Outpatient (BNVA) | payer MEDICARE, MEDICAID, SELFPAY | PROVIDERS: PCP Internal Medicine; Visit Provider Urology | DX: N40.1 Benign prostatic hyperplasia with lower urinary tract symptoms (principal); N13.8 Other obstructive and reflux uropathy; N52.9 Male erectile dysfunction, unspecified | CPT/HCPCS: 51798; 99212 ==

== ENCOUNTER → 2023-08-28 09:45 | Outpatient (BNVA) | payer MEDICARE, MEDICAID, SELFPAY | PROVIDERS: PCP Internal Medicine; Visit Provider Internal Medicine Hypertension Specialist ==

== ENCOUNTER 2023-08-29 08:59 | Outpatient (AMB) | payer MEDICARE, MEDICAID, SELFPAY ==
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
[2023-08-29 09:05] VITALS: BP 126/80; PULSE 71; O2SAT 97; BMI 28.8
== END 2023-08-29 09:31 | disposition home or self-care (01) ==
PROVIDERS: PCP Internal Medicine; Visit Provider Internal Medicine Hypertension Specialist
DX: I12.9 Hypertensive chronic kidney disease with stage 1 through stage 4 chronic kidney disease, or unspecified chronic kidney disease (principal); N18.9 Chronic kidney disease, unspecified
CPT/HCPCS: 99214

== ENCOUNTER → 2023-08-29 08:59 | Outpatient (BNVA) | payer MEDICARE, MEDICAID, SELFPAY | PROVIDERS: PCP Internal Medicine; Visit Provider Internal Medicine Hypertension Specialist | DX: I12.9 Hypertensive chronic kidney disease with stage 1 through stage 4 chronic kidney disease, or unspecified chronic kidney disease (principal); N18.9 Chronic kidney disease, unspecified | CPT/HCPCS: 99212 ==

== ENCOUNTER 2023-12-19 10:12 | Outpatient (REF) | payer MEDICARE, MEDICAID, SELFPAY ==
[2023-12-19 11:47] LABS: MANUAL DIFF FLAG NO
[2023-12-19 12:29] LABS: Basophils Percent Auto 0.4 % (0-2); Eosinophils Absolute Auto 0.4 X10*3/uL (0.0-0.4); Eosinophils Percent Auto 5.1 % (0-4); Hematocrit 38.9 % (42.0-52.0); Hemoglobin 12.5 g/dl (14.0-18.0); Imm Gran Abs Auto 0.02 X10*3/uL (0.00-0.03); Imm Gran Pct Auto 0.3 % (0.0-0.4); Lymphocytes Absolute Auto 1.5 X10*3/uL (1.2-4.9); Lymphocytes Percent Auto 20.2 % (20-40); Mean Corpuscular HGB Conc 32.1 g/dl (31.0-36.0); Mean Corpuscular Hemoglobin 26.9 pg (27.0-33.0); Mean Corpuscular Volume 83.7 fL (80.0-98.0); Mean Platelet Volume 10.4 fL (9.4-12.4); Monocytes Absolute Auto 0.6 X10*3/uL (0.1-1.2); Monocytes Percent Auto 7.6 % (2-11); Neutrophils Absolute Auto 4.8 x10*3/uL (2.0-8.3); Neutrophils Percent Auto 66.4 % (45-73); Platelet Count 203 X10*3/uL (160-400); Red Blood Count 4.65 X10*6/uL (4.60-5.80); Red Cell Distribution Width 13.8 % (11.0-16.0); White Blood Count 7.2 X10*3/uL (4.8-10.8)
[2023-12-19 12:58] LABS: Alanine Aminotransferase 20 U/L (0-40); Albumin Level 4.8 g/dL (3.5-5.0); Alkaline Phosphatase 85 U/L (39-117); Anion Gap 12 (12-20); Aspartate Amino Transferase 19 U/L (5-37); Bilirubin Total 0.8 mg/dL (0.0-1.0); Blood Urea Nitrogen 25 mg/dL (9-16); Calcium 10.6 mg/dL (8.4-10.2); Carbon Dioxide 25 mmol/L (22-29); Chloride 109 mmol/L (96-108); Estimated Glomerular Filt Rate 42; Glucose Random 83 mg/dL (60-115); Phosphorus 3.1 mg/dL (2.7-4.5); Sodium 142 mmol/L (135-145); Total Protein 7.9 g/dL (6.5-8.0)
[2023-12-19 13:00] LABS: Parathyroid Hormone Intact 161.5 pg/mL (8.7-77.1)
== END 2023-12-19 10:13 | disposition home or self-care (01) ==
LOC: HO.LAB 10:12
PROVIDERS: PCP Internal Medicine; Visit Provider Internal Medicine Hypertension Specialist
DX: I12.9 Hypertensive chronic kidney disease with stage 1 through stage 4 chronic kidney disease, or unspecified chronic kidney disease (principal); N18.9 Chronic kidney disease, unspecified
CPT/HCPCS: 36415; 80053; 83970; 84100; 85025; 99212

== ENCOUNTER 2023-12-19 10:12 | Outpatient (AMB) | payer MEDICARE, MEDICAID, SELFPAY ==
[2023-12-19 10:48] VITALS: BP 116/72; PULSE 74; O2SAT 96; BMI 28.5
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
== END 2023-12-19 11:04 | disposition home or self-care (01) ==
PROVIDERS: PCP Internal Medicine; Visit Provider Internal Medicine Hypertension Specialist
DX: I12.9 Hypertensive chronic kidney disease with stage 1 through stage 4 chronic kidney disease, or unspecified chronic kidney disease (principal); N18.30 Chronic kidney disease, stage 3 unspecified
CPT/HCPCS: 99214

== ENCOUNTER 2024-01-05 08:34 | Outpatient (REF) | payer MEDICARE, MEDICAID, SELFPAY ==
--- NOTE | ~2024-01-05 | US_ITS ---
EXAMINATION: US RETROPERITONEAL LIMITED (RENAL ONLY) CLINICAL INFORMATION: Chronic kidney disease. COMPARISON: None available. TECHNIQUE: Real-time imaging of the kidneys. FINDINGS: RIGHT KIDNEY: 11.5 x 3 x 4.9 cm (SAG x AP x TRV). The kidney is normal in size, contour, and echogenicity. Renal cortical thickness is normal. No calculi or focal parenchymal lesions. No hydronephrosis. At the interpolar aspect, a 1.7 cm and 1.1 cm benign, simple cysts are seen, for which no imaging follow-up is recommended. LEFT KIDNEY: 11.5 x 5.4 x 5.2 cm (SAG x AP x TRV). The kidney is normal in size, contour, and echogenicity. Renal cortical thickness is normal. No calculi or focal parenchymal lesions. No hydronephrosis. At the lower pole, a 9 mm benign, simple cyst is, which no imaging follow-up is recommended. US/US renal BI IMPRESSION: Unremarkable examination.
== END 2024-01-05 08:35 | disposition home or self-care (01) ==
LOC: HO.US 08:34
PROVIDERS: Visit Provider Internal Medicine Hypertension Specialist
DX: I12.9 Hypertensive chronic kidney disease with stage 1 through stage 4 chronic kidney disease, or unspecified chronic kidney disease (principal); N18.9 Chronic kidney disease, unspecified
CPT/HCPCS: 76775

== ENCOUNTER → 2024-03-05 09:22 | Outpatient (BNVA) | payer MEDICARE, MEDICAID, SELFPAY | PROVIDERS: PCP Internal Medicine; Visit Provider Urology | DX: N52.9 Male erectile dysfunction, unspecified (principal); R35.1 Nocturia; R39.12 Poor urinary stream | CPT/HCPCS: 99212 ==

== ENCOUNTER 2024-03-18 11:43 | Outpatient (AMB) | payer MEDICARE, MEDICAID, SELFPAY ==
[2024-03-18 11:51] VITALS: BP 142/94; PULSE 79; O2SAT 96; BMI 28.3
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
[2024-03-18 12:04] VITALS: BP 120/80
== END 2024-03-18 12:10 | disposition home or self-care (01) ==
LOC: HO.HKA 11:44
PROVIDERS: PCP Internal Medicine; Visit Provider Internal Medicine Hypertension Specialist
DX: I12.9 Hypertensive chronic kidney disease with stage 1 through stage 4 chronic kidney disease, or unspecified chronic kidney disease (principal); N18.30 Chronic kidney disease, stage 3 unspecified
CPT/HCPCS: 99214

== ENCOUNTER → 2024-03-18 11:43 | Outpatient (BNVA) | payer MEDICARE, MEDICAID, SELFPAY | PROVIDERS: PCP Internal Medicine; Visit Provider Internal Medicine Hypertension Specialist | DX: I12.9 Hypertensive chronic kidney disease with stage 1 through stage 4 chronic kidney disease, or unspecified chronic kidney disease (principal); N18.9 Chronic kidney disease, unspecified | CPT/HCPCS: 99212 ==

== ENCOUNTER → 2024-03-21 10:41 | Outpatient (BNVA) | payer MEDICARE, MEDICAID, SELFPAY | PROVIDERS: PCP Internal Medicine ==

== ENCOUNTER 2024-04-11 08:31 | Outpatient (AMB) | payer MEDICARE, MEDICAID, SELFPAY ==
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
[2024-04-11 08:37] VITALS: BP 130/78; PULSE 71; O2SAT 98; BMI 28.2
== END 2024-04-11 09:14 | disposition home or self-care (01) ==
PROVIDERS: PCP Internal Medicine; Visit Provider Internal Medicine
DX: Z00.00 Encounter for general adult medical examination without abnormal findings (principal); I10 Essential (primary) hypertension

== ENCOUNTER → 2024-04-11 08:31 | Outpatient (BNVA) | payer MEDICARE, MEDICAID, SELFPAY | PROVIDERS: PCP Internal Medicine; Visit Provider Internal Medicine | DX: Z00.00 Encounter for general adult medical examination without abnormal findings (principal); I10 Essential (primary) hypertension; E78.5 Hyperlipidemia, unspecified | CPT/HCPCS: 96127; 99397 ==

== ENCOUNTER 2024-05-05 09:32 | Emergency (ER) | payer MEDICARE, MEDICAID, SELFPAY ==
[2024-05-05 09:36] VITALS: BP 149/96; PULSE 75; RESP 18; TEMP 36.8; O2SAT 98; BMI 28.3
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
[2024-05-05 10:47] VITALS: BP 149/96; PULSE 75; RESP 18; TEMP 36.8; O2SAT 98
== END 2024-05-05 10:48 | disposition home or self-care (01) ==
PROVIDERS: Emergency Provider Emergency Medicine; PCP Internal Medicine
DX: M54.16 Radiculopathy, lumbar region (principal)
CPT/HCPCS: 99282

== ENCOUNTER 2024-06-06 14:13 | Outpatient (AMB) | payer MEDICARE, MEDICAID, SELFPAY ==
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
== END 2024-06-06 14:39 | disposition home or self-care (01) ==
PROVIDERS: PCP Internal Medicine; Visit Provider Internal Medicine
DX: I10 Essential (primary) hypertension (principal)

== ENCOUNTER → 2024-06-06 14:13 | Outpatient (BNVA) | payer MEDICARE, MEDICAID, SELFPAY | PROVIDERS: PCP Internal Medicine; Visit Provider Internal Medicine | DX: I10 Essential (primary) hypertension (principal) | CPT/HCPCS: 99212 ==

== ENCOUNTER 2024-08-12 10:05 | Outpatient (REF) | payer MEDICARE, MEDICAID, SELFPAY ==
[2024-08-12 11:53] LABS: Anion Gap 12 (12-20); Blood Urea Nitrogen 19 mg/dL (9-16); Calcium 9.7 mg/dL (8.4-10.2); Carbon Dioxide 25 mmol/L (22-29); Chloride 111 mmol/L (96-108); Estimated Glomerular Filt Rate 45; Glucose Random 92 mg/dL (60-115); Potassium 4.1 mmol/L (3.3-5.1); Sodium 144 mmol/L (135-145)
[2024-08-12 11:54] LABS: Appearance Urine Clear; Color Urine Yellow; Glucose Urine UA Negative (Negative); Leukocyte Esterase Urine Negative (Negative); Nitrite Urine Negative (Negative); Specific Gravity - Urine 1.015 (1.005-1.025); UMIC TRIGGER UA YES; Urine Blood Negative (Negative); Urine Ketones Negative (Negative); Urine Protein 30 (1+) mg/dL (Neg-Trace)
[2024-08-12 11:59] LABS: Bacteria Urine None Seen (None Seen); Hyaline Casts Urine 0-2 /LPF (0-2); RBC Urine 0-2 /HPF (0-2); Squamous Epithelial Cell Urine 0-2 /HPF (0-2); WBC Urine 0-5 /HPF (0-5)
[2024-08-12 12:12] LABS: Parathyroid Hormone Intact 148.3 pg/mL (8.7-77.1)
[2024-08-12 12:32] LABS: Creatinine Urine 153.41 mg/dL; Total Protein Urine Random 42 mg/dL (<12)
== END 2024-08-12 10:06 | disposition home or self-care (01) ==
LOC: HO.LAB 10:05
PROVIDERS: PCP Internal Medicine; Visit Provider Internal Medicine Hypertension Specialist
DX: N18.9 Chronic kidney disease, unspecified (principal); I10 Essential (primary) hypertension
CPT/HCPCS: 36415; 80048; 81001; 81003; 82570; 83970; 84156

== ENCOUNTER 2024-08-13 09:16 | Outpatient (AMB) | payer MEDICARE, MEDICAID, SELFPAY ==
[2024-08-13 09:22] VITALS: BP 130/80; PULSE 84; O2SAT 96; BMI 28.9
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
== END 2024-08-13 09:39 | disposition home or self-care (01) ==
LOC: HO.HKA 09:16
PROVIDERS: PCP Internal Medicine; Visit Provider Internal Medicine Hypertension Specialist
DX: I12.9 Hypertensive chronic kidney disease with stage 1 through stage 4 chronic kidney disease, or unspecified chronic kidney disease (principal); N18.9 Chronic kidney disease, unspecified
CPT/HCPCS: 99214

== ENCOUNTER → 2024-08-13 09:16 | Outpatient (BNVA) | payer MEDICARE, MEDICAID, SELFPAY | PROVIDERS: PCP Internal Medicine; Visit Provider Internal Medicine Hypertension Specialist | DX: N40.0 Benign prostatic hyperplasia without lower urinary tract symptoms (principal); N52.9 Male erectile dysfunction, unspecified; I12.9 Hypertensive chronic kidney disease with stage 1 through stage 4 chronic kidney disease, or unspecified chronic kidney disease; N18.9 Chronic kidney disease, unspecified; Z79.899 Other long term (current) drug therapy | CPT/HCPCS: 99212 ==

== ENCOUNTER 2024-09-05 07:57 | Outpatient (AMB) | payer MEDICARE, MEDICAID, SELFPAY ==
--- OUTSIDE RECORDS SUMMARY | 2024-09-05 08:02 | XMS_ITS | Clinical Summary ---
Author Organization [facility] Address [address] [place] [address] Phone Care Team Providers Care Air Tool Operator Name Role Phone Williams Morejon MD Primary Care Provider [phone] Allergies Active Allergy Reactions Criticality Noted Date Comments Cat Dander 08/25/2013 Penicillins Other (see comments) 10/07/2020 Medications atorvastatin (LIPITOR) 10 MG tablet Take 1 tablet by mouth 1 (one) time each day Active cholecalciferol (VITAMIN D-3) 25 MCG (1000 UT) capsule Take 1 capsule by mouth 1 (one) time each day 04/10/2020 Active lisinopril (PRINIVIL,ZESTR IL) 20 MG tablet Take 1 tablet by mouth 1 (one) time each day 01/15/2018 Active metoprolol succinate XL (TOPROL-XL) 200 MG 24 hr tablet Take 1 tablet by mouth 1 (one) time each day Active minoxidil (LONITEN) 2.5 MG tablet Take 2.5 mg by mouth in the morning and 2.5 mg in the evening. Active Active Problems Problem Noted Date Diagnosed Date Hypertension 10/08/2020 Left ventricular hypertrophy 10/08/2020 Cerebrovascular accident 10/08/2020 Secondary hyperparathyroidism 10/08/2020 Vitamin D deficiency, not otherwise specified Cyst of kidney 10/08/2020 Hemiplegia and hemiparesis f ollowing unspecified cerebrovascular disease affecting unspecified side 10/08/2020 Lower urinary tract symptoms due to benign prostatic hypertrophy 10/07/2020 Stage 3b chronic kidney disease 10/07/2020 Hypertensive heart disease without heart failure 10/07/2020 Microscopic hematuria 10/07/2020 Resolved Problems Problem Noted Date Diagnosed Date Resolved Date Benign prostatic hyperplasia 10/08/2020 01/19/2022 Hemiparesis 10/07/2020 10/08/2020 Renal failure syndrome 10/07/202010/08 Immunizations Immunization Administration Dates Next Due Influenza Split High Dose Preservative Free IM 1 Family History Medical History Relation Comments Diabetes Sibling Relation Status Comments Father Mother Sibling Social History Tobacco Use Types Packs/Day Years Used Date Smoking Tobacco: Former Smokeless Tobacco: Never Alcohol Use Standard Drinks/Week Comments No 0 (1 standard drink = 0.6 oz pur e alcohol) Sex and Gender Information Value Date Recorded Sex Assigned at Not on file Legal Sex Male 5:14 PM EST Gender Identity Not on file Sexual Orientation Not on file Last Filed Vital Signs Vital Sign Reading Time Taken Comments Blood Pressure 126/92 01/20/2022 9:53 AM EDT Pulse 78 01/20/2022 9:53 AM EDT Temperature - - Respiratory Rate - - Oxygen Saturation 97% 01/20/2022 9:53 AM EDT Inhaled Oxygen Concentration - - Weight 99.7 kg (219 lb 12.8 oz) 01/20/2022 9:53 AM EDT Height 182.9 cm (6') 01/20/2022 9:53 AM EDT Body Mass Index 29.81 01/20/2022 9:53 AM EDT Plan of Treatment Health Maintenance Due Date Last Done Comments Pneumococcal Vaccine: 50+ Ye ars (1 of 2 - PCV) 04/28/1975 Colorectal Cancer Screening: Annual FOBT 04/28/2005 Colorectal Cancer Screening: Colonoscopy 04/28/2005 Colorectal Cancer Screening: Sigmoidoscopy 04/28/2005 Influenza Vaccine (Season Ended) 2025 02/20/20 Hepatitis B Vaccine Aged Out No longe r eligible based on patient's age to complete this topic Insurance [place] Care Teams Air Tool Operator Relationship Specialty Start Date End Date Williams Morejon MD [id number] [place] PCP - General 06/01/20
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
[2024-09-05 08:41] VITALS: BP 130/84; PULSE 80; RESP 20; TEMP 36.7; O2SAT 96; BMI 29.0
== END 2024-09-05 09:27 | disposition home or self-care (01) ==
DX: I10 Essential (primary) hypertension (principal); E78.2 Mixed hyperlipidemia; N18.31 Chronic kidney disease, stage 3a; H10.13 Acute atopic conjunctivitis, bilateral

== ENCOUNTER → 2024-09-05 07:57 | Outpatient (BNVA) | payer MEDICARE, MEDICAID, SELFPAY | PROVIDERS: PCP Internal Medicine | DX: Z76.89 Persons encountering health services in other specified circumstances (principal); E78.2 Mixed hyperlipidemia; I12.9 Hypertensive chronic kidney disease with stage 1 through stage 4 chronic kidney disease, or unspecified chronic kidney disease; N18.31 Chronic kidney disease, stage 3a; H10.13 Acute atopic conjunctivitis, bilateral | CPT/HCPCS: 99212 ==

== ENCOUNTER 2024-10-11 09:55 | Outpatient (AMB) | payer MEDICARE, MEDICAID, SELFPAY ==
[2024-10-11 09:57] VITALS: BP 120/74; PULSE 82; RESP 22; TEMP 36.7; O2SAT 96; BMI 29.2
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
--- OUTSIDE RECORDS SUMMARY | 2024-10-11 10:12 | XMS_ITS | Clinical Summary ---
Author Organization [facility] Address [address] [facility] [address] [place] [address] Phone Care Team Providers Care Apprentice Plant Attendant Name Role Phone Williams Morejon MD Primary Care Provider [phone] Allergies Active Allergy Reactions Criticality Noted Date [...] to complete this topic [place] Care Teams Apprentice Plant Attendant Relationship Specialty Start Date End Date Williams Morejon MD [id number] [place] PCP - General 06/01/20
== END 2024-10-11 10:45 | disposition home or self-care (01) ==
LOC: HO.HMCH 09:56
DX: H10.13 Acute atopic conjunctivitis, bilateral (principal); R05.3 Chronic cough

== ENCOUNTER → 2024-10-11 09:55 | Outpatient (BNVA) | payer MEDICARE, MEDICAID, SELFPAY | DX: H10.13 Acute atopic conjunctivitis, bilateral (principal); R05.3 Chronic cough | CPT/HCPCS: 99212 ==

== ENCOUNTER 2024-11-05 08:10 | Outpatient (AMB) | payer MEDICARE, MEDICAID, SELFPAY ==
--- OUTSIDE RECORDS SUMMARY | 2024-11-05 08:15 | XMS_ITS | Clinical Summary ---
Author Organization [facility] Address [address] [facility] [address] [place] [address] Phone Care Team Providers Care Steel Molder Name Role Phone Williams Morejon MD Primary Care Provider [phone] Allergies Active Allergy Reactions Criticality Noted Date [...] to complete this topic Insurance [place] Care Teams Steel Molder Relationship Specialty Start Date End Date Williams Morejon MD [id number] [place] PCP - General 06/01/20
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
== END 2024-11-05 09:04 | disposition home or self-care (01) ==
LOC: HO.HUSH 08:11
PROVIDERS: PCP Internal Medicine; Visit Provider Urology
DX: N52.9 Male erectile dysfunction, unspecified (principal); N40.1 Benign prostatic hyperplasia with lower urinary tract symptoms; N13.8 Other obstructive and reflux uropathy; R35.1 Nocturia
CPT/HCPCS: 99214; G2211

== ENCOUNTER → 2024-11-05 08:10 | Outpatient (BNVA) | payer MEDICARE, MEDICAID, SELFPAY | PROVIDERS: PCP Internal Medicine; Visit Provider Urology | DX: N40.1 Benign prostatic hyperplasia with lower urinary tract symptoms (principal); N13.8 Other obstructive and reflux uropathy; R35.1 Nocturia; N52.9 Male erectile dysfunction, unspecified | CPT/HCPCS: 99212 ==

== ENCOUNTER 2025-01-06 08:49 | Outpatient (REF) | payer MEDICARE, MEDICAID, SELFPAY ==
[2025-01-06 10:12] LABS: MANUAL DIFF FLAG NO
[2025-01-06 10:54] LABS: Hematocrit 38.9 % (42.0-52.0); Hemoglobin 12.4 g/dl (14.0-18.0); Imm Gran Abs Auto 0.04 X10*3/uL (0.00-0.03); Imm Gran Pct Auto 0.5 % (0.0-0.4); Lymphocytes Absolute Auto 1.8 X10*3/uL (1.2-4.9); Mean Corpuscular HGB Conc 31.9 g/dl (31.0-36.0); Mean Corpuscular Hemoglobin 25.9 pg (27.0-33.0); Mean Corpuscular Volume 81.4 fL (80.0-98.0); NRBC Abs Auto 0.000 X10*3/uL (0.0-0.012); NRBC Pct Auto 0.0 /100WBC (0.0-0.2); Platelet Count 272 X10*3/uL (160-400); Red Blood Count 4.78 X10*6/uL (4.60-5.80); White Blood Count 8.0 X10*3/uL (4.8-10.8)
[2025-01-06 11:18] LABS: Appearance Urine Clear; Glucose Urine UA Negative (Negative); PH 5.5 (5.0-9.0); Specific Gravity - Urine 1.015 (1.005-1.025); UMIC TRIGGER UACC YES
[2025-01-06 11:47] LABS: Parathyroid Hormone Intact 169.3 pg/mL (8.7-77.1)
[2025-01-06 11:49] LABS: Alanine Aminotransferase 38 U/L (0-40); Albumin Level 4.7 g/dL (3.5-5.0); Alkaline Phosphatase 92 U/L (39-117); Anion Gap 14 (12-20); Aspartate Amino Transferase 38 U/L (5-37); Blood Urea Nitrogen 28 mg/dL (9-16); Calcium 10.2 mg/dL (8.4-10.2); Carbon Dioxide 23 mmol/L (22-29); Chloride 111 mmol/L (96-108); Cholesterol 197 mg/dL (<200); Estimated Glomerular Filt Rate 39; HDL Cholesterol 39 mg/dL (>40); Potassium 4.5 mmol/L (3.3-5.1); Sodium 143 mmol/L (135-145); Total Protein 8.0 g/dL (6.5-8.0); Triglycerides 236 mg/dL (<150)
== END 2025-01-06 08:50 | disposition home or self-care (01) ==
LOC: HO.LAB 08:49
DX: E78.2 Mixed hyperlipidemia (principal); I12.9 Hypertensive chronic kidney disease with stage 1 through stage 4 chronic kidney disease, or unspecified chronic kidney disease; N18.31 Chronic kidney disease, stage 3a; R79.89 Other specified abnormal findings of blood chemistry; M79.605 Pain in left leg; Z87.891 Personal history of nicotine dependence; N40.1 Benign prostatic hyperplasia with lower urinary tract symptoms; N13.8 Other obstructive and reflux uropathy; N52.9 Male erectile dysfunction, unspecified
CPT/HCPCS: 36415; 80053; 80061; 81001; 82306; 83970; 84443; 85025; 99212

== ENCOUNTER 2025-01-06 08:49 | Outpatient (AMB) | payer MEDICARE, MEDICAID, SELFPAY ==
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
--- OUTSIDE RECORDS SUMMARY | 2025-01-06 09:15 | XMS_ITS | Clinical Summary ---
Author Organization [facility] Address [address] [place] [address] Phone Care Team Providers Care Rebrander Name Role Phone Williams Morejon MD Primary Care Provider [phone] Allergies Active Allergy Reactions Criticality Noted Date [...] Colorectal Cancer Screening: Sigmoidoscopy 04/28/2005 Influenza Vaccine (#1) 2025 02/19/2019 Hepatitis B Vaccine Aged Out No longe r eligible based on patient's age to complete this topic Insurance [place] Care Teams Rebrander Relationship Specialty Start Date End Date Williams Morejon MD [id number] [place] PCP - General 06/01/20
[2025-01-06 09:18] VITALS: BP 110/60; PULSE 85; TEMP 35.9; O2SAT 98; BMI 28.7
== END 2025-01-06 13:26 | disposition home or self-care (01) ==
LOC: HO.HMCH 08:50
DX: E78.2 Mixed hyperlipidemia (principal); I10 Essential (primary) hypertension; N18.31 Chronic kidney disease, stage 3a; R79.89 Other specified abnormal findings of blood chemistry; M79.605 Pain in left leg

== ENCOUNTER 2025-02-12 07:24 | Emergency (ER) | payer MEDICARE, MEDICAID, SELFPAY ==
--- NOTE | ~2025-02-12 | US_ITS ---
EXAMINATION: US TRIPLEX LOWER EXTREMITY, LEFT CLINICAL INFORMATION: Swelling, R/O DVT. COMPARISON: None available. TECHNIQUE: Color-flow triplex imaging with spectral analysis and compression Doppler were performed on the left lower extremity. FINDINGS: Respiratory variation, normal compression and augmented flow are noted throughout the left lower extremity. The visualized common femoral vein, greater saphenous vein, femoral vein, profunda femoral vein, popliteal vein and midcalf posterior tibial vein show no evidence of deep venous thrombosis. Contralateral right common femoral vein is also patent. Note that the peroneal vein could not be seen. There is no Daniels's cyst. US/US venous duplex LE LT IMPRESSION: No evidence of deep venous thrombosis involving the left lower extremity. Note that the peroneal vein could not be seen. Electronically signed by: Arlen Davis MD 02/12/2025 09:00 AM EDT
--- NOTE | ~2025-02-12 | XR_ITS ---
EXAMINATION: XR ANKLE, LEFT CLINICAL INFORMATION: Pain and swelling COMPARISON: None available. TECHNIQUE: AP, lateral, and mortise views of the left ankle. FINDINGS: No fracture, dislocation, or suspicious bone lesion. No malalignment. The ankle mortise is intact. The talar dome is normal. There is a moderate-sized plantar calcaneal spur. There is no definite ankle joint effusion. There is mild circumferential soft tissue swelling most prominent laterally. XR/XR ankle LT 2V IMPRESSION: Soft tissue swelling without acute bony abnormality. Electronically signed by: Johnny Chandra MD 02/12/2025 09:19 AM EDT
[2025-02-12 07:39] VITALS: BP 107/80; PULSE 93; RESP 14; TEMP 37; O2SAT 97; BMI 29.7
[2025-02-12 07:47] VITALS: BP 107/80; PULSE 93; RESP 14; TEMP 37; O2SAT 97
--- NOTE | 2025-02-12 07:48 | PC.NURSE ---
Patient presents to ED c/o right knee rated 9/10 which radiates down into right foot. Right knee warm and swollen. Denies injury and numbness. Tingling sensation noted in right foot. +CMS Limited ROM. Patient ambulates independently with a cane VSS and up to date Provider in to see patient Plan of care on going
--- OUTSIDE RECORDS SUMMARY | 2025-02-12 08:05 | XMS_ITS | Clinical Summary ---
Author Organization [facility] Address [address] [place] [address] Phone Care Team Providers Care Shingle Trimmer Name Role Phone Williams Morejon MD Primary Care Provider [phone] Allergies Active Allergy Reactions Criticality Noted Date [...] to complete this topic Insurance Medicare Medicaid [place] Care Teams Shingle Trimmer Relationship Specialty Start Date End Date Williams Morejon MD [id number] [place] PCP - General 06/01/20
--- NOTE | 2025-02-12 08:13 | PC.NURSE ---
Patient presents to ED c/o left knee rated 9/10 which radiates down into left foot. Left knee warm and swollen. Denies injury and numbness. Tingling sensation noted in left foot. +CMS Limited ROM. Patient ambulates independently with a cane VSS and up to date Provider in to see patient Plan of care on going
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
[2025-02-12] MEDS: oxyCODONE HCl Immed Release 5 MG TABLET PO (08:19)
--- NOTE | 2025-02-12 08:21 | PC.NURSE ---
Patient now denies pain in left knee and says pain is in his left ankle only
[2025-02-12 09:22] LABS: MANUAL DIFF FLAG NO
[2025-02-12 09:29] LABS: White Blood Count 9.3 X10*3/uL (4.8-10.8)
[2025-02-12 09:30] LABS: Hematocrit 35.4 % (42.0-52.0); Hemoglobin 11.5 g/dl (14.0-18.0); Imm Gran Abs Auto 0.03 X10*3/uL (0.00-0.03); Imm Gran Pct Auto 0.3 % (0.0-0.4); Lymphocytes Absolute Auto 1.3 X10*3/uL (1.2-4.9); Mean Corpuscular HGB Conc 32.5 g/dl (31.0-36.0); Mean Corpuscular Hemoglobin 26.1 pg (27.0-33.0); Mean Corpuscular Volume 80.5 fL (80.0-98.0); NRBC Abs Auto 0.000 X10*3/uL (0.0-0.012); NRBC Pct Auto 0.0 /100WBC (0.0-0.2); Platelet Count 201 X10*3/uL (160-400); Red Blood Count 4.40 X10*6/uL (4.60-5.80)
[2025-02-12 09:37] LABS: Anion Gap 11 (12-20); Blood Urea Nitrogen 23 mg/dL (9-16); Calcium 9.9 mg/dL (8.4-10.2); Carbon Dioxide 25 mmol/L (22-29); Chloride 111 mmol/L (96-108); Creatinine Clr Calc Pharmacy 56.7; Estimated Glomerular Filt Rate 46; Potassium 4.1 mmol/L (3.3-5.1); Sodium 143 mmol/L (135-145)
[2025-02-12 10:10] LABS: Erythrocyte Sedimentation Rate 22 MM/HR (0-15)
[2025-02-12 10:42] VITALS: BP 107/80; PULSE 93; RESP 14; TEMP 37; O2SAT 97
== END 2025-02-12 10:51 | disposition home or self-care (01) ==
PROVIDERS: Emergency Provider Emergency Medicine
DX: M13.872 Other specified arthritis, left ankle and foot (principal); M79.89 Other specified soft tissue disorders; M10.9 Gout, unspecified; M25.572 Pain in left ankle and joints of left foot; I10 Essential (primary) hypertension; Z86.73 Personal history of transient ischemic attack (TIA), and cerebral infarction without residual deficits; Z79.899 Other long term (current) drug therapy
CPT/HCPCS: 36415; 73600; 80048; 85025; 85652; 86140; 93971; 99284

== ENCOUNTER → 2025-02-12 08:11 | Outpatient (BNV) | payer MEDICARE, MEDICAID, SELFPAY | PROVIDERS: Emergency Provider Emergency Medicine; Visit Provider Radiology Diagnostic Radiology | DX: M25.572 Pain in left ankle and joints of left foot (principal); R22.42 Localized swelling, mass and lump, left lower limb | CPT/HCPCS: 73600; 93971 ==

== ENCOUNTER 2025-02-24 08:29 | Outpatient (REF) | payer MEDICARE, MEDICAID, SELFPAY ==
[2025-02-24 11:46] LABS: Erythrocyte Sedimentation Rate 9 MM/HR (0-15)
[2025-02-24 11:51] LABS: Uric Acid 8.7 mg/dL (3.4-7.0)
== END 2025-02-24 08:30 | disposition home or self-care (01) ==
LOC: HO.LAB 08:29
DX: M1A.0720 Idiopathic chronic gout, left ankle and foot, without tophus (tophi) (principal); M77.50 Other enthesopathy of unspecified foot and ankle
CPT/HCPCS: 36415; 84550; 85652; 86141; 99212

== ENCOUNTER 2025-02-24 08:29 | Outpatient (AMB) | payer MEDICARE, MEDICAID, SELFPAY ==
[2025-02-24 08:39] VITALS: BP 144/82; PULSE 79; RESP 18; TEMP 36.2; O2SAT 95; BMI 29.8
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
--- OUTSIDE RECORDS SUMMARY | 2025-02-24 09:02 | XMS_ITS | Clinical Summary ---
Author Organization [facility] Address [address] [place] [address] Phone Care Team Providers Care Income Auditor Name Role Phone Williams Morejon MD Primary Care Provider Allergies Active Allergy Reactions Criticality Noted Date [...] to complete this topic Insurance [place] Care Teams Income Auditor Relationship Specialty Start Date End Date Williams Morejon MD [id number] [place] PCP - General 06/01/20
== END 2025-02-24 11:43 | disposition home or self-care (01) ==
DX: M1A.0720 Idiopathic chronic gout, left ankle and foot, without tophus (tophi) (principal); M77.50 Other enthesopathy of unspecified foot and ankle

== ENCOUNTER 2025-03-06 09:37 | Outpatient (REF) | payer MEDICARE, MEDICAID, SELFPAY ==
[2025-03-06 10:35] LABS: Hematocrit 40.0 % (42.0-52.0); Hemoglobin 12.6 g/dl (14.0-18.0); Mean Corpuscular HGB Conc 31.5 g/dl (31.0-36.0); Mean Corpuscular Hemoglobin 26.3 pg (27.0-33.0); Mean Corpuscular Volume 83.3 fL (80.0-98.0); NRBC Abs Auto 0.000 X10*3/uL (0.0-0.012); NRBC Pct Auto 0.0 /100WBC (0.0-0.2); Platelet Count 182 X10*3/uL (160-400); Red Blood Count 4.80 X10*6/uL (4.60-5.80); White Blood Count 6.0 X10*3/uL (4.8-10.8)
[2025-03-06 11:30] LABS: Anion Gap 13 (12-20); Blood Urea Nitrogen 24 mg/dL (9-16); Calcium 10.1 mg/dL (8.4-10.2); Carbon Dioxide 24 mmol/L (22-29); Chloride 111 mmol/L (96-108); Estimated Glomerular Filt Rate 43; Potassium 4.3 mmol/L (3.3-5.1); Sodium 144 mmol/L (135-145)
== END 2025-03-06 09:38 | disposition home or self-care (01) ==
LOC: HO.LAB 09:37
PROVIDERS: Visit Provider Internal Medicine Hypertension Specialist
DX: N18.9 Chronic kidney disease, unspecified (principal)
CPT/HCPCS: 36415; 80048; 85027

== ENCOUNTER 2025-03-10 09:29 | Outpatient (AMB) | payer MEDICARE, MEDICAID, SELFPAY ==
[2025-03-10 09:28] VITALS: BP 118/70; PULSE 87; O2SAT 96; BMI 29.6
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
--- OUTSIDE RECORDS SUMMARY | 2025-03-10 10:41 | XMS_ITS | Clinical Summary ---
Author Organization [facility] Address [address] [facility] [address] [place] [address] Phone Care Team Providers Care Press Clipper Name Role Phone Williams Morejon MD Primary Care Provider [phone] Allergies Active Allergy Reactions Criticality Noted Date [...] to complete this topic Insurance [place] Care Teams Press Clipper Relationship Specialty Start Date End Date Williams Morejon MD [id number] [place] PCP - General 06/01/20
== END 2025-03-10 09:45 | disposition home or self-care (01) ==
LOC: HO.HKA 09:30
PROVIDERS: PCP Internal Medicine; Visit Provider Internal Medicine Hypertension Specialist
DX: N18.31 Chronic kidney disease, stage 3a (principal); I10 Essential (primary) hypertension
CPT/HCPCS: 99214

== ENCOUNTER → 2025-03-10 09:29 | Outpatient (BNVA) | payer MEDICARE, MEDICAID, SELFPAY | PROVIDERS: PCP Internal Medicine; Visit Provider Internal Medicine Hypertension Specialist | DX: I12.9 Hypertensive chronic kidney disease with stage 1 through stage 4 chronic kidney disease, or unspecified chronic kidney disease (principal); N18.31 Chronic kidney disease, stage 3a | CPT/HCPCS: 99212 ==

== ENCOUNTER 2025-05-08 09:00 | Outpatient (AMB) | payer MEDICARE, MEDICAID, SELFPAY ==
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
[2025-05-08 09:11] VITALS: BP 122/82; PULSE 75; RESP 20; TEMP 36.2; O2SAT 96
== END 2025-05-08 09:38 | disposition home or self-care (01) ==
LOC: HO.HMCH 09:01
DX: E78.2 Mixed hyperlipidemia (principal); I10 Essential (primary) hypertension; N18.31 Chronic kidney disease, stage 3a; R79.89 Other specified abnormal findings of blood chemistry; M79.605 Pain in left leg; N52.9 Male erectile dysfunction, unspecified; M77.50 Other enthesopathy of unspecified foot and ankle

== ENCOUNTER → 2025-05-08 09:00 | Outpatient (BNVA) | payer MEDICARE, MEDICAID, SELFPAY | DX: I10 Essential (primary) hypertension (principal); E78.2 Mixed hyperlipidemia; N18.31 Chronic kidney disease, stage 3a; R79.89 Other specified abnormal findings of blood chemistry; N52.9 Male erectile dysfunction, unspecified; M77.50 Other enthesopathy of unspecified foot and ankle | CPT/HCPCS: 99212 ==